=== PATIENT | female | born 1975 | race Two or more races ===

== ENCOUNTER 2020-12-17 11:47 | Outpatient (REF) | payer BC, SELFPAY ==
[2020-12-17 14:48] LABS: Hematocrit 45.8 % (37-47); Hemoglobin 15.4 g/dl (12.0-16.0); Mean Corpuscular HGB Conc 33.6 g/dl (31.0-35.0); Mean Corpuscular Hemoglobin 31.1 pg (27.0-33.0); Mean Corpuscular Volume 92.5 fL (80-98); Mean Platelet Volume 10.1 fL (9.4-12.3); Platelet Count 252 X10*3/uL (160-400); Red Blood Count 4.95 X10*6/uL (4.20-5.50); Red Cell Distribution Width 11.9 % (11.0-16.0); White Blood Count 6.2 X10*3/uL (4.8-10.8)
[2020-12-17 15:07] LABS: Alanine Aminotransferase 22 U/L (0-31); Albumin Level 4.6 g/dL (3.5-5.0); Alkaline Phosphatase 51 U/L (39-117); Anion Gap 12 (12-20); Aspartate Amino Transferase 20 U/L (5-31); Bilirubin Total 0.4 mg/dL (0.0-1.0); Blood Urea Nitrogen 12 mg/dL (9-16); Calcium 9.3 mg/dL (8.4-10.2); Carbon Dioxide 27 mmol/L (22-29); Chloride 103 mmol/L (96-108); Cholesterol 193 mg/dL; Estimated Glomerular Filt Rate > 60; Glucose Fasting 96 mg/dL (60-99); HDL Cholesterol 79 mg/dL; LDL Cholesterol Calculated 104 mg/dl; Potassium 4.4 mmol/L (3.3-5.1); Sodium 138 mmol/L (135-145); Total Protein 7.1 g/dL (6.5-8.0); Triglycerides 54 mg/dL
[2020-12-17 15:29] LABS: Glucose Urine UA NEG (NEG); Leukocyte Esterase Urine NEG (NEG); Nitrite Urine NEG (NEG); PH 5.5 (5.0-8.0); Urine Blood NEG (NEG); Urine Ketones NEG (NEG); Urine Protein NEG (NEG-TRACE)
[2020-12-17 15:30] LABS: TSH reflex Free T4 0.96 uIU/mL (0.32-4.0)
[2020-12-17 15:39] LABS: Appearance Urine CLEAR; Color Urine YELLOW
[2020-12-17 15:42] LABS: UPreg QC Valid YES; Urine Pregnancy NEGATIVE (NEGATIVE)
[2020-12-18 15:52] LABS: Follicle Stimulating Hormone 11.7 mIU/mL
[2020-12-23 07:01] LABS: HPV mRNA E6/E7 Not Detected (Not Detected)
== END 2020-12-17 11:48 | disposition home or self-care (01) ==
LOC: HO.HMGCLDS 11:47
PROVIDERS: PCP Internal Medicine; Visit Provider Internal Medicine
DX: Z00.00 Encounter for general adult medical examination without abnormal findings (principal); R10.2 Pelvic and perineal pain
CPT/HCPCS: 36415; 80053; 80061; 81003; 81025; 83001; 84443; 85027; 87624; 88142

== ENCOUNTER 2021-01-20 08:09 | Outpatient (REF) | payer BC, SELFPAY ==
--- NOTE | ~2021-01-20 | US_ITS ---
EXAMINATION: TRANSVAGINAL AND TRANSABDOMINAL ULTRASOUND OF THE PELVIS CLINICAL INFORMATION: R10.2 - Pelvic and perineal pain COMPARISON: None. TECHNIQUE: Real-time scanning of the pelvis is acquired via transabdominal and transvaginal approach. Transvaginal images were obtained for more detailed evaluation of the ovaries. FINDINGS: UTERUS: Retroverted. Normal in size and appearance, measuring 7.3 x 5 x 5.9 cm (SAG x AP x TRANS). Endometrium is diffusely echogenic, consistent with the secretory phase. Maximum Endometrial Thickness: 1.0 cm. Myometrium: Normal. OVARIES AND ADNEXA: Ovaries are normal in size and appearance. There is a 1.4 cm round structure at the left ovary with a thick wall: No internal blood flow, and diffuse peripheral blood flow on color Doppler, consistent with a corpus luteum. No suspicious adnexal mass. Arterial and venous waveforms are present in both ovaries on spectral Doppler evaluation. Right Ovary: 2.6 x 1.5 x 1.8 cm, volume 3.8 mL. Left Ovary: 3 x 1.5 x 1.7 cm, volume 4 mL. FREE FLUID: None. US/US pelvic and transvaginal IMPRESSION: No acute pelvic abnormalities. A 1.4 cm left corpus luteum is noted.
== END 2021-01-20 08:10 | disposition home or self-care (01) ==
LOC: HO.HMGCX 08:09
PROVIDERS: Visit Provider Internal Medicine
DX: R10.2 Pelvic and perineal pain (principal)
CPT/HCPCS: 76830; 76856

== ENCOUNTER 2022-05-09 11:00 | Outpatient (REF) | payer BC, SELFPAY ==
--- NOTE | ~2022-05-09 | XR_ITS ---
EXAMINATION: XR CHEST CLINICAL INFORMATION: Cough. COMPARISON: None TECHNIQUE: 2 views of the chest were obtained. FINDINGS: No significant abnormality is noted involving the heart, lungs, mediastinum, bony thorax or soft tissues. XR/XR chest 2V IMPRESSION: No acute cardiopulmonary process.
== END 2022-05-09 11:01 | disposition home or self-care (01) ==
LOC: HO.HMGCX 11:00
PROVIDERS: PCP Internal Medicine; Visit Provider Internal Medicine
DX: R05.9 Cough, unspecified (principal)
CPT/HCPCS: 71046

== ENCOUNTER 2022-08-29 13:58 | Outpatient (REF) | payer BC, SELFPAY ==
[2022-08-29 16:34] LABS: Hematocrit 46.9 % (37.0-47.0); Hemoglobin 15.9 g/dl (12.0-16.0); Mean Corpuscular HGB Conc 33.9 g/dl (31.0-35.0); Mean Corpuscular Hemoglobin 30.3 pg (27.0-33.0); Mean Corpuscular Volume 89.5 fL (80.0-98.0); Mean Platelet Volume 10.2 fL (9.4-12.3); Platelet Count 241 X10*3/uL (160-400); Red Blood Count 5.24 X10*6/uL (4.20-5.50); Red Cell Distribution Width 11.8 % (11.0-16.0); White Blood Count 6.5 X10*3/uL (4.8-10.8)
[2022-08-29 16:46] LABS: Alanine Aminotransferase 29 U/L (0-31); Albumin Level 4.7 g/dL (3.5-5.0); Alkaline Phosphatase 54 U/L (39-117); Anion Gap 12 (12-20); Aspartate Amino Transferase 16 U/L (5-31); Bilirubin Direct 0.2 mg/dL (0.0-0.5); Bilirubin Total 0.5 mg/dL (0.0-1.0); Blood Urea Nitrogen 8 mg/dL (9-16); Calcium 9.7 mg/dL (8.4-10.2); Carbon Dioxide 26 mmol/L (22-29); Chloride 106 mmol/L (96-108); Estimated Glomerular Filt Rate > 60; Glucose Random 92 mg/dL (60-115); Potassium 4.2 mmol/L (3.3-5.1); Sodium 140 mmol/L (135-145); Total Protein 7.3 g/dL (6.5-8.0)
[2022-08-29 17:17] LABS: Erythrocyte Sedimentation Rate 2 MM/HR (0-20)
== END 2022-08-29 13:59 | disposition home or self-care (01) ==
LOC: HO.HMGCLDS 13:58
PROVIDERS: PCP Internal Medicine; Visit Provider Internal Medicine
DX: R19.7 Diarrhea, unspecified (principal)
CPT/HCPCS: 36415; 80048; 80076; 85027; 85652

== ENCOUNTER 2022-10-05 10:00 | Outpatient (RCR) | payer BC, SELFPAY ==
[2022-09-12 14:30] VITALS: BP 140/78; PULSE 110; O2SAT 96
== END 2022-11-23 08:06 | disposition home or self-care (01) ==
LOC: HO.PTWFD 10:00
PROVIDERS: PCP Internal Medicine; Visit Provider Internal Medicine
DX: H81.10 Benign paroxysmal vertigo, unspecified ear (principal)
CPT/HCPCS: 95992; 97110; 97161; 97535

== ENCOUNTER 2022-10-05 14:43 | Outpatient (REF) | payer BC, SELFPAY ==
[2022-10-05 16:44] LABS: Appearance Urine Clear; Color Urine Yellow; Glucose Urine UA Negative (Negative); Leukocyte Esterase Urine Negative (Negative); Nitrite Urine Negative (Negative); Specific Gravity - Urine <= 1.005 (1.005-1.025); Urine Blood Negative (Negative); Urine Ketones Negative (Negative); Urine Protein Negative (Neg-Trace)
== END 2022-10-05 14:44 | disposition home or self-care (01) ==
LOC: HO.HMGCLDS 14:43
PROVIDERS: PCP Internal Medicine; Visit Provider Internal Medicine
DX: R35.0 Frequency of micturition (principal)
CPT/HCPCS: 81003

== ENCOUNTER 2022-12-02 15:09 | Outpatient (REF) | payer BC, SELFPAY ==
[2022-12-02 16:48] LABS: Appearance Urine Clear; Color Urine Yellow; Glucose Urine UA Negative (Negative); Leukocyte Esterase Urine Negative (Negative); Nitrite Urine Negative (Negative); PH 6.5 (5.0-9.0); Specific Gravity - Urine 1.015 (1.005-1.025); Urine Blood Negative (Negative); Urine Ketones Negative (Negative); Urine Protein Negative (Neg-Trace)
[2022-12-04 11:20] LABS: BV Int Neg Control Negative (Negative); BV Int Pos Control Positive (Positive)
== END 2022-12-02 15:10 | disposition home or self-care (01) ==
LOC: HO.LAB 15:09
PROVIDERS: Visit Provider Physician Assistant Medical
DX: R30.0 Dysuria (principal); N89.8 Other specified noninflammatory disorders of vagina
CPT/HCPCS: 81003; 87480; 87510; 87660

== ENCOUNTER 2022-12-04 08:44 | Outpatient (REF) | payer BC, SELFPAY ==
[2022-12-04 12:23] LABS: Cholesterol 220 mg/dL; HDL Cholesterol 63 mg/dL; LDL Cholesterol Calculated 140 mg/dl; Triglycerides 89 mg/dL
== END 2022-12-04 08:45 | disposition home or self-care (01) ==
LOC: HO.HMGCLDS 08:44
PROVIDERS: PCP Internal Medicine; Visit Provider Internal Medicine
DX: Z00.00 Encounter for general adult medical examination without abnormal findings (principal)
CPT/HCPCS: 36415; 80061

== ENCOUNTER 2022-12-13 11:14 | Outpatient (REF) | payer BC, SELFPAY ==
[2022-12-16 10:19] LABS: HPV mRNA E6/E7 Not Detected (Not Detected)
== END 2022-12-13 11:15 | disposition home or self-care (01) ==
LOC: HO.LNP 11:14
PROVIDERS: Visit Provider Internal Medicine
DX: Z01.419 Encounter for gynecological examination (general) (routine) without abnormal findings (principal)
CPT/HCPCS: 87624; 88142

== ENCOUNTER 2023-01-09 11:05 | Outpatient (REF) | payer BC, SELFPAY ==
--- NOTE | ~2023-01-09 | US_ITS ---
EXAMINATION: US PELVIS CLINICAL INFORMATION: Ovarian cyst. COMPARISON: Pelvic ultrasound 01/20/2021. TECHNIQUE: Ultrasound of the pelvis is performed using both transabdominal and transvaginal transducers along with Doppler. Transvaginal imaging is performed due to inadequate visualization transabdominally. FINDINGS: Uterus: The uterus is retroverted and retroflexed and measures 8.0 x 4.7 x 6.0 cm. The double wall endometrial thickness is 9 mm. The uterus is smooth in contour and has normal myometrial echogenicity. No visible fibroid. There are nabothian cysts in the cervix. Adnexa: Both ovaries are visualized. There is normal color flow to the adnexa. There is no ovarian torsion. Right ovary measures 2.3 x 1.1 x 1.4 cm. Volume 1.9 mL. Left ovary measures 3.4 x 1.1 x 1.7 cm. Volume 3.1 mL. There is a 1.6 x 0.9 x 1.2 cm thinly septated benign cyst. No follow-up imaging recommended. There is trace free fluid in the pelvis. US/US pelvic and transvaginal IMPRESSION: Unremarkable pelvic ultrasound.
--- NOTE | ~2023-01-09 | US_ITS ---
EXAMINATION: US RETROPERITONEAL LIMITED (RENAL ONLY) CLINICAL INFORMATION: Unspecified abdominal pain. Nephrolithiasis. COMPARISON: None available. TECHNIQUE: Real-time imaging of the kidneys. FINDINGS: RIGHT KIDNEY: 11.2 x 3.9 x 4.6 cm (SAG x AP x TRV). The kidney is normal in size, contour, and echogenicity. Renal cortical thickness is normal. No calculi or focal parenchymal lesions. No hydronephrosis. Extrarenal pelvis. LEFT KIDNEY: 11.0 x 4.9 x 4.9 cm (SAG x AP x TRV). The kidney is normal in size, contour, and echogenicity. Renal cortical thickness is normal. No calculi or focal parenchymal lesions. No hydronephrosis. Extrarenal pelvis. Right ureteral jet is demonstrated; left is not. US/US renal BI IMPRESSION: No nephrolithiasis or hydronephrosis.
== END 2023-01-09 11:06 | disposition home or self-care (01) ==
LOC: HO.US 11:05
PROVIDERS: PCP Internal Medicine; Visit Provider Internal Medicine
DX: R10.9 Unspecified abdominal pain (principal); N83.209 Unspecified ovarian cyst, unspecified side
CPT/HCPCS: 76775; 76830; 76856

== ENCOUNTER 2023-04-24 10:02 | Outpatient (AMB) | payer BC, SELFPAY ==
--- NOTE | 2023-04-24 11:06 | AM.OFFWIN_ITS ---
Intake Vital Signs 04/24/23 11:08 Height 5 ft 3.9 in BP 124/72 Blood Pressure Location Lt brachial Position Sitting Pulse 83 Pulse Source Pulse Oximeter Temp 96.9 F Temp Source Temporal Artery Scan Pulse Oximetry (%) 98 Oxygen Delivery Method Room Air Intake Visit Reasons: EP, Left eye stye Intake Note: Pt is here c/o having a stye in her left eye. Patient Tobacco Use Status: Former Tobacco user (25 years ago) Allergies No Known Allergies Allergy (Verified 04/24/23 11:37) Medication List - Last Reconciled 04/24/23 by Yvan Duvall MD meclizine 25 mg PO TID PRN mupirocin 2% 1 appl topical BID sertraline (Zoloft) 50 mg PO DAILY HPI EP, Left eye stye HPI Details 48-year-old female presents to the office for a sick visit. Patient has a swelling in the left eye lid with purulent discharge. [facility] Medical History Abnormal mammogram Annual physical exam Pelvic pain Family History (Updated 12/13/22 @ 10:16 by Nella Bravo ON LICENSE OF [facility]) Father Cancer Mother No problems noted. Social History (Updated 11/14/22 @ 10:35 by Elysia Chapa MD) Household Members Other:: , Housing: House Alcohol intake: unknown Patient Tobacco Use Status: Former Tobacco user (25 years ago) e-Cigarette/Vaping Use: Never Used Current occupational status: employed Cognitive needs: No Hearing needs: No Vision needs: No Physical Exam Vital Signs: Last Vital Signs Temp 96.9 F 04/24/23 11:08 Pulse 83 04/24/23 11:08 BP 124/72 04/24/23 11:08 Pulse Ox 98 04/24/23 11:08 Oxygen Delivery Method Room Air 04/24/23 11:08 Eyes Other: Left eye: Lower eyelid: Erythematous swelling on the lower eyelid and the adjoining tarsal conjunctiva is congested. Corneas clear. Assessment & Plan Assessment & Plan (1) Hordeolum externum left eye, unspecified eyelid: Code(s): H00.016 - Hordeolum externum left eye, unspecified eyelid Plan: Erythromycin ophthalmic ointment called in. If symptoms do not improve to follow-up here. Coding Level of Care Code Est Pt Level 3 (32759) Diagnoses Hordeolum externum left eye, unspecified eyelid H00.016
[2023-04-24 11:08] VITALS: BP 124/72; PULSE 83; TEMP 36.1; O2SAT 98
== END 2023-04-24 11:44 | disposition home or self-care (01) ==
PROVIDERS: PCP Internal Medicine; Visit Provider Internal Medicine
DX: H00.016 Hordeolum externum left eye, unspecified eyelid (principal)
CPT/HCPCS: 99213

== ENCOUNTER 2023-06-19 09:32 | Outpatient (AMB) | payer BC, SELFPAY ==
[2023-06-19 09:35] VITALS: BP 110/66; PULSE 88; O2SAT 99; BMI 26.0
--- NOTE | 2023-06-19 09:35 | MHC.PC.OV ---
Vital Signs 06/19/23 09:35 Height 5 ft 3.9 in Weight 151 lb BMI 26.0 BP 110/66 Blood Pressure Location Rt brachial Position Sitting Pulse 88 Pulse Source Pulse Oximeter Pulse Oximetry (%) 99 Oxygen Delivery Method Room Air Intake Visit Reasons: 6 month follow up Anxiety Intake Note: Pt is here today for 6 months follow up visit on anxiety. Allergies No Known Allergies Allergy (Verified 06/19/23 09:39) Medication List - Last Reconciled 06/19/23 by Elysia Chapa MD meclizine 25 mg PO TID PRN mupirocin 2% 1 appl topical BID sertraline (Zoloft) 50 mg PO DAILY Tobacco use date assessed: 06/19/23 Dental Screening Dental Screen Date: 06/19/23 Did you have a dental visit in the last 12 months?: Yes Did you have a dental problem in the last 6 months where you did not have access to dental care?: No Was dental information given to patient?: Patient has dentist HPI 6 month follow up Anxiety HPI Details Patient presents for the follow-up of anxiety. She took Zoloft for 2 months only and felt better. Patient reports recurrent mood swings and anxiety associated with menopause. She has been exercising regularly. [facility] Medical History Abnormal mammogram Annual physical exam Pelvic pain Family History (Updated 12/13/22 @ 10:16 by Nella Bravo [facility]) Father Cancer Mother No problems noted. Social History (Updated 11/14/22 @ 10:35 by Elysia Chapa MD) Household Members Other:: , Housing: House Alcohol intake: unknown Patient Tobacco Use Status: Former Tobacco user (25 years ago) e-Cigarette/Vaping Use: Never Used Current occupational status: employed Cognitive needs: No Hearing needs: No Vision needs: No Questionnaire Thrive Questionnaire Date Thrive assessed: 11/14/22 LEONCIO-7 AMB Questionnaire LEONCIO-7 Date LEONCIO - 7 assessed: 11/14/22 Source: Developed by Drs. Eduard Torres, Snehal Michael, Hayder Nicholson and colleagues, with an educational shade from [employer]. Review of Systems Const All systems reviewed & are unremarkable except as noted in HPI and below Reports no additional complaints Eyes Reports no additional complaints ENT Reports no additional complaints Card Reports no additional complaints Resp Reports no additional complaints GI Reports no additional complaints Reports no additional complaints Physical exam (Primary Care) Vital Signs: Last Vital Signs Pulse 88 06/19/23 09:35 BP 110/66 06/19/23 09:35 Pulse Ox 99 06/19/23 09:35 Oxygen Delivery Method Room Air 06/19/23 09:35 BMI result Body Mass Index 26.0 Tobacco/Smoking Status: Tobacco use Status Tobacco use date assessed 06/19/23 06/19/23 09:44 Patient Tobacco Use Status Former Tobacco user (06/19/23 09:36 years ago) e-Cigarette/Vaping Use Never Used 06/19/23 09:36 Thrive Assessment: Date of Thrive Assessment Date Thrive assessed 11/14/22 06/19/23 09:36 Const General: no acute distress HENMT Ears: hearing grossly normal bilaterally Resp Effort & Inspection: normal respiratory effort Auscultation: clear to auscultation bilaterally Cardio Rhythm: regular rhythm Heart sounds: S1 normal heart sound present and S2 normal heart sound present Assessment and Plan Assessment & Plan (1) Annual physical exam: Code(s): Z00.00 - Encounter for general adult medical examination without abnormal findings Plan: Return for physical in November with fasting blood work before (2) Anxiety: Code(s): F41.9 - Anxiety disorder, unspecified Plan: Restart sertraline and stress management discussed Orders: Orders Comprehensive [place]. Panel Fast 5 Months F41.9 - Anxiety disorder, unspecified, Z00.00 - Encounter for general adult medical examination without abnormal findings Complete Blood Count Auto Diff 5 Months F41.9 - Anxiety disorder, unspecified, Z00.00 - Encounter for general adult medical examination without abnormal findings Lipid Panel 5 Months F41.9 - Anxiety disorder, unspecified, Z00.00 - Encounter for general adult medical examination without abnormal findings TSH reflex Free T4 5 Months F41.9 - Anxiety disorder, unspecified, Z00.00 - Encounter for general adult medical examination without abnormal findings Medications: Refilled sertraline (Zoloft) 50 mg PO DAILY 90 tabs 2RF Coding Level of Care Code Est Pt Level 3 (41405) Diagnoses Annual physical exam Z00.00 Anxiety F41.9
== END 2023-06-19 10:31 | disposition home or self-care (01) ==
PROVIDERS: PCP Internal Medicine; Visit Provider Internal Medicine
DX: F41.9 Anxiety disorder, unspecified (principal)
CPT/HCPCS: 99213

== ENCOUNTER 2023-09-21 10:01 | Outpatient (AMB) | payer BC, SELFPAY ==
--- NOTE | 2023-09-21 10:10 | MHC.PC.OV ---
Vital Signs 09/21/23 10:12 Height 5 ft 3.9 in Weight 153 lb BMI 26.3 BP 122/70 Blood Pressure Location Rt brachial Position Sitting Pulse 58 Pulse Source Pulse Oximeter Pulse Oximetry (%) 98 Oxygen Delivery Method Room Air Intake Visit Reasons: ER follow up Allergies No Known Allergies Allergy (Verified 09/21/23 10:14) Medication List - Last Reconciled 09/21/23 by Elysia Chapa MD metoprolol tartrate 25 mg PO BID sertraline (Zoloft) 50 mg PO DAILY Tobacco use date assessed: 09/21/23 Dental Screening Dental Screen Date: 09/21/23 Did you have a dental visit in the last 12 months?: Yes Did you have a dental problem in the last 6 months where you did not have access to dental care?: No Was dental information given to patient?: Patient has dentist HPI ER follow up HPI Details Patient presents for the follow-up of admission to [facility] for the episode of SVT. Patient converted with Adenosine and was started on metoprolol. she denies any recurrent palpitations shortness of breath but has been feeling very anxious and concerned. She was advised to schedule an appointment with [facility] in [place]. [facility] Medical History Pelvic pain Abnormal mammogram Annual physical exam Family History Father Cancer Mother No problems noted. Social History Household Members Other:: , Housing: House Alcohol intake: unknown Patient Tobacco Use Status: Former Tobacco user (25 years ago) e-Cigarette/Vaping Use: Never Used Current occupational status: employed Cognitive needs: No Hearing needs: No Vision needs: No Questionnaire Thrive Questionnaire Date Thrive assessed: 11/14/22 AUDIT C Alcohol Use Questionnaire (AUDIT-C) 1. How often do you have a drink containing alcohol?: Never 3. How often do you have six or more drinks on one occasion?: Never Total Score: 0 Score Reviewed/Action Taken: Yes LEONCIO-7 AMB Questionnaire LEONCIO-7 Date LEONCIO - 7 assessed: 09/21/23 Feeling nervous, anxious, or on edge: 3 = Nearly every day Not being able to stop or control worryin = More than half the days Worrying too much about different things: 3 = Nearly every day Trouble relaxin = Several days Being so restless that it is hard to sit still: 0 = Not at all Becoming easily annoyed or irritable: 0 = Not at all Feeling afraid as if something awful might happen: 0 = Not at all Total LEONCIO-7 score (0-4 normal; 5-9 mild; 10-14 moderate; 15-21 severe): 9 Source: Developed by Drs. Eduard Torres, Snehal Michael, Hayder Nicholson and colleagues, with an educational shade from [employer]. LEONCIO-7 Assessment Billing LEONCIO-7 Assessment Tool: LEONCIO-7 Assessment 94604 Review of Systems Const All systems reviewed & are unremarkable except as noted in HPI and below Reports no additional complaints Eyes Reports no additional complaints ENT Reports no additional complaints Card Reports no additional complaints Resp Reports no additional complaints GI Reports no additional complaints Reports no additional complaints Physical exam (Primary Care) Vital Signs: Last Vital Signs Pulse 58 09/21/23 10:12 BP 122/70 09/21/23 10:12 Pulse Ox 98 09/21/23 10:12 Oxygen Delivery Method Room Air 09/21/23 10:12 BMI result Body Mass Index 26.3 Tobacco/Smoking Status: Tobacco use Status Tobacco use date assessed 09/21/23 09/21/23 10:15 Patient Tobacco Use Status Former Tobacco user (25 09/21/23 10:11 years ago) e-Cigarette/Vaping Use Never Used 09/21/23 10:11 Thrive Assessment: Date of Thrive Assessment Date Thrive assessed 11/14/22 09/21/23 10:11 Const General: no acute distress HENMT Head: Yes normal to inspection Face and sinus: Yes normal facial exam Eyes General: appearance normal, both eyes and all related structures Neck Neck: Yes no lymphadenopathy and Yes supple Resp Effort & Inspection: normal respiratory effort Auscultation: clear to auscultation bilaterally Cardio Rhythm: regular rhythm Heart sounds: S1 normal heart sound present and S2 normal heart sound present GI Inspection: Yes normal to inspection Palpation (GI): Soft to palpation Percussion: Yes normal to percussion Auscultation: normal bowel sounds Assessment and Plan Assessment & Plan (1) SVT (supraventricular tachycardia): Code(s): I47.10 - Supraventricular tachycardia, unspecified Plan: cont Metoprolol, refer to Cardiology, pt will schedule appointment (2) Anxiety: Code(s): F41.9 - Anxiety disorder, unspecified Plan: Restart sertraline, stress management discussed with the patient, for perimenopausal symptoms she was advised to take Estroven Orders: Referrals Cardiology Referral I47.10 - Supraventricular tachycardia, unspecified Medications: New metoprolol tartrate 25 mg PO BID 180 tabs 1RF Refilled sertraline (Zoloft) 50 mg PO DAILY 90 tabs 2RF Coding Level of Care Code Est Pt Level 3 (62475) Diagnoses SVT (supraventricular tachycardia) I47.10 Anxiety F41.9 Additional Codes LEONCIO-7 Assessment Billing - LEONCIO-7 Assessment Tool: LEONCIO-7 Assessment 95063 ([id number])
[2023-09-21 10:12] VITALS: BP 122/70; PULSE 58; O2SAT 98; BMI 26.3
== END 2023-09-21 11:10 | disposition home or self-care (01) ==
PROVIDERS: PCP Internal Medicine; Visit Provider Internal Medicine
DX: I47.10 Supraventricular tachycardia, unspecified (principal); F41.9 Anxiety disorder, unspecified
CPT/HCPCS: 96127; 99213

== ENCOUNTER 2023-10-02 10:43 | Outpatient (AMB) | payer BC, SELFPAY ==
[2023-10-02 10:46] VITALS: BP 108/66; PULSE 64; O2SAT 98; BMI 26.2
--- NOTE | 2023-10-02 10:46 | MHC.PC.OV ---
Vital Signs 10/02/23 10:46 Height 5 ft 3.9 in Weight 152 lb BMI 26.2 BP 108/66 Blood Pressure Location Rt brachial Position Sitting Pulse 64 Pulse Source Pulse Oximeter Pulse Oximetry (%) 98 Oxygen Delivery Method Room Air Intake Visit Reasons: Follow up Intake Note: Pt is here today for a follow up visit. Pt states that [facility] told her that she should have testing done by her PCP before they will see her. Allergies No Known Allergies Allergy (Verified 10/02/23 10:46) Medication List - Last Reconciled 10/02/23 by Elysia Chapa MD metoprolol tartrate 25 mg PO BID sertraline (Zoloft) 50 mg PO DAILY Tobacco use date assessed: 10/02/23 Dental Screening Dental Screen Date: 10/02/23 Did you have a dental visit in the last 12 months?: Yes Did you have a dental problem in the last 6 months where you did not have access to dental care?: No Was dental information given to patient?: Patient has dentist HPI Follow up HPI Details Patient presents for the follow-up of anxiety and paroxysmal SVT. She is feeling better and denies recurrent palpitations. [facility] Medical History Pelvic pain Abnormal mammogram Annual physical exam Family History Father Cancer Mother No problems noted. Social History Household Members Other:: , Housing: House Alcohol intake: unknown Patient Tobacco Use Status: Former Tobacco user (25 years ago) e-Cigarette/Vaping Use: Never Used Current occupational status: employed Cognitive needs: No Hearing needs: No Vision needs: No Questionnaire Thrive Questionnaire Date Thrive assessed: 11/14/22 AUDIT C Alcohol Use Questionnaire (AUDIT-C) 1. How often do you have a drink containing alcohol?: Never 3. How often do you have six or more drinks on one occasion?: Never Total Score: 0 LEONCIO-7 AMB Questionnaire LEONCIO-7 Date LEONCIO - 7 assessed: 09/21/23 Source: Developed by Drs. Eduard Torres, Snehal Michael, Hayder Nicholson and colleagues, with an educational shade from [employer]. Review of Systems Const All systems reviewed & are unremarkable except as noted in HPI and below Reports no additional complaints Eyes Reports no additional complaints ENT Reports no additional complaints Card Reports no additional complaints Resp Reports no additional complaints GI Reports no additional complaints Physical exam (Primary Care) Vital Signs: Last Vital Signs Pulse 64 10/02/23 10:46 BP 108/66 10/02/23 10:46 Pulse Ox 98 10/02/23 10:46 Oxygen Delivery Method Room Air 10/02/23 10:46 BMI result Body Mass Index 26.2 Tobacco/Smoking Status: Tobacco use Status Tobacco use date assessed 10/02/23 10/02/23 10:47 Patient Tobacco Use Status Former Tobacco user (25 10/02/23 10:47 years ago) e-Cigarette/Vaping Use Never Used 10/02/23 10:47 Thrive Assessment: Date of Thrive Assessment Date Thrive assessed 11/14/22 10/02/23 10:47 Const General: no acute distress HENMT Throat: Yes posterior oropharynx normal Eyes General: appearance normal, both eyes and all related structures Resp Effort & Inspection: normal respiratory effort Auscultation: clear to auscultation bilaterally Cardio Rhythm: regular rhythm Heart sounds: S1 normal heart sound present and S2 normal heart sound present Assessment and Plan Assessment & Plan (1) SVT (supraventricular tachycardia): Code(s): I47.10 - Supraventricular tachycardia, unspecified Plan: Continue metoprolol , schedule 30 day Holter and echocardiogram. Patient will be referred to political advisor (2) Anxiety: Code(s): F41.9 - Anxiety disorder, unspecified Plan: Continue sertraline Orders: Orders CA echo transthoracic complete Today F41.9 - Anxiety disorder, unspecified, I47.10 - Supraventricular tachycardia, unspecified ECG 30 day event monitor Today F41.9 - Anxiety disorder, unspecified, I47.10 - Supraventricular tachycardia, unspecified Referrals Cardiology Referral I47.10 - Supraventricular tachycardia, unspecified Coding Level of Care Code Est Pt Level 3 (76095) Diagnoses SVT (supraventricular tachycardia) I47.10 Anxiety F41.9
== END 2023-10-02 11:31 | disposition home or self-care (01) ==
PROVIDERS: PCP Internal Medicine; Visit Provider Internal Medicine
DX: I47.10 Supraventricular tachycardia, unspecified (principal); F41.9 Anxiety disorder, unspecified
CPT/HCPCS: 99213

== ENCOUNTER → 2023-10-22 08:34 | Outpatient (REF) | payer BC, SELFPAY ==
--- NOTE | 2023-10-22 08:50 | CA_ITS ---
Transthoracic Echocardiogram Patient (Last, First, Middle): Selena Higgins, Gender: Female Date of : 1975 Age: 48 Procedure Date: 10/22/2023 Procedure Type: Transthoracic Echocardiogram Location: OP Height: 162.56 cm Weight: 68.04 kg BSA: 1.73 m2 Heart Rate: bpm BP: 140 / 82 mmHg [employer] Manager: RAFAT Referring MD: Elysia Chapa MD Symptoms: I47.10 - Supraventricular tachycardia, unspecified Study Quality: Adequate ECG Rhythm: Sinus Conclusions: - The left ventricular systolic function is normal. The calculated ejection fraction is 65% by biplane method. - No obvious valvular pathology seen on this study. Findings Left Ventricle Normal left ventricular cavity size. There is normal left ventricular wall thickness. The left ventricular systolic function is normal. The calculated ejection fraction is 65% by biplane method. There is no evidence of regional wall motion abnormalities. Diastolic function is normal for age. LV peak GLS -21.9%. Right Ventricle Normal right ventricular cavity size and systolic function. Atria Both atria are normal in size. Aortic Valve There is a normal trileaflet aortic valve. There is no aortic valve stenosis. There is no aortic valve regurgitation. Mitral Valve The mitral valve appears normal. There is trace mitral valve regurgitation. There is no mitral valve stenosis. Pulmonic Valve The pulmonic valve is likely normal. Tricuspid Valve Normal tricuspid valve structure. There is trace tricuspid valve regurgitation. There is no evidence of pulmonary hypertension. Great Vessels The asc aorta is normal in size. Venous The inferior vena cava is normal in size and collapses greater than 50% with inspiration. Pericardium/Pleural There is no evidence of pericardial effusion. Prior Study Comparison No prior study available for comparison. Recommendations, Care & Conclusions No obvious valvular pathology seen on this study. Measurements 2D Linear Measurements IVSd: 0.55 0.6-0.9/0.6-1.0 cm LVIDd: 4.97 3.9-5.3/4.2-5.9 cm LVIDd Index: 2.87 2.4-3.2/2.2-3.1 cm/m2 LVIDs: 3.08 2.0-3.6 cm LVPWd: 0.71 0.7-1.1 cm LA Diam: 3.10 2.7-3.8/3.0-4.0 cm LAIDs Index: 1.79 1.5-2.3 cm/m2 LV Mass: 122.84 67-162/88-224 g LV Mass Index: 71.00 43-95/49-115 g/m2 LVOT Diam: 1.90 3.0+(-)1.3 cm 2D Systolic Function EF 4C: 60.00 >55% EF 2C: 68.20 >55% EF BiP: 64.50 >55% Mitral Valve MV Pk E: 1.07 MV PK A: 0.70 MV Decel Time: 163.00 E/A: 1.50 E'Lateral: 12.00 E'Medial: 7.94 E/E' Med: 13.50 E/E' Lat: 8.90 PHT: 48.00 MVA PHT: 4.58 Decel [place]: 6.59 Aortic Valve AoV Pk Donnie: 1.10 AoV Mn Donnie: 0.79 AoV VTI: 0.28 AoV Pk Grad: 5.00 Aov Mn Grad: 3.00 BENITA Cont.VTI: 2.22 LVOT LVOT Pk Donnie: 1.00 LVOT Mn Donnie: 0.59 LVOT VTI: 0.22 LVOT Pk Grad: 4.00 LVOT Mn Grad: 2.00 LVOT Diam: 1.90 LVOT Area: 2.84 Diastolic Function MV Pk E: 1.07 MV Pk A: 0.70 E/A: 1.50 E'Medial: 7.94 E/E' Med: 13.50 E' Laterial: 12.00 E/E' Lat: 8.90 Right Ventricle TAPSE (mm): 23.60 TVS' Donnie: 14.80 Tricuspid Valve RA Press: 3.00 Great Vessels Aorta Sinus of Valsalva: 2.92 2.0-3.[address] [place]: 2.36 1.7-3.4 cm Ao Asc: 2.80 2.1-3.4 cm Updated in Other Vendor System with Status of Final Malik Burgos MD electronically signed on 10/22/2023 12:41:50 PM with status of Final
--- NOTE | 2023-10-22 08:50 | HM_ITS ---
Cardiac event monitor Indication: Supraventricular tachycardia Technique: Patient was hooked up to cardiac event monitor for 30 days on 10/22/2023. Compliance rate was about 84%. Findings: Baseline rhythm was predominantly sinus rhythm with 32% of time heart rate below 60 beats per minute in sinus bradycardia. There were no significant pauses noted. There were no significant arrhythmias noted Patient reported to events with no corresponding symptoms reported, correlating with sinus rhythm Conclusion: 1. Baseline was normal sinus rhythm with no pauses 2. No significant arrhythmias noted 3. Patient reported to events correlated with sinus rhythm MTDD
== END ==
LOC: HO.CARD 08:34
PROVIDERS: PCP Internal Medicine; Visit Provider Internal Medicine
DX: I47.10 Supraventricular tachycardia, unspecified (principal); F41.9 Anxiety disorder, unspecified
CPT/HCPCS: 93270; 93306; 93356

== ENCOUNTER → 2023-10-22 08:50 | Outpatient (BNV) | payer BC, SELFPAY | PROVIDERS: PCP Internal Medicine; Visit Provider Internal Medicine | DX: R00.1 Bradycardia, unspecified (principal) | CPT/HCPCS: 93272; 93306 ==

== ENCOUNTER 2023-11-12 09:01 | Outpatient (REF) | payer BC, SELFPAY ==
[2023-11-12 11:48] LABS: MANUAL DIFF FLAG NO
[2023-11-12 12:32] LABS: Basophils Percent Auto 0.2 % (0-2); Eosinophils Absolute Auto 0.1 X10*3/uL (0.0-0.4); Eosinophils Percent Auto 1.1 % (0-4); Hematocrit 44.6 % (37.0-47.0); Hemoglobin 15.2 g/dl (12.0-16.0); Imm Gran Abs Auto 0.01 X10*3/uL (0.00-0.03); Imm Gran Pct Auto 0.2 % (0.0-0.4); Lymphocytes Absolute Auto 2.4 X10*3/uL (1.2-4.9); Lymphocytes Percent Auto 37.1 % (20-40); Mean Corpuscular HGB Conc 34.1 g/dl (31.0-35.0); Monocytes Absolute Auto 0.5 X10*3/uL (0.1-1.2); Monocytes Percent Auto 7.4 % (2-11); Neutrophils Absolute Auto 3.5 x10*3/uL (2.0-8.3); Platelet Count 224 X10*3/uL (160-400); White Blood Count 6.4 X10*3/uL (4.8-10.8)
[2023-11-12 12:43] LABS: Alanine Aminotransferase 31 U/L (0-31); Albumin Level 4.3 g/dL (3.5-5.0); Alkaline Phosphatase 44 U/L (39-117); Anion Gap 13 (12-20); Aspartate Amino Transferase 23 U/L (5-31); Bilirubin Total 0.6 mg/dL (0.0-1.0); Blood Urea Nitrogen 22 mg/dL (9-16); Calcium 9.3 mg/dL (8.4-10.2); Carbon Dioxide 26 mmol/L (22-29); Chloride 104 mmol/L (96-108); Cholesterol 200 mg/dL (<200); Estimated Glomerular Filt Rate > 60; Glucose Fasting 94 mg/dL (60-99); HDL Cholesterol 68 mg/dL (>40); LDL Cholesterol Calculated 114 mg/dL (<100); Potassium 3.8 mmol/L (3.3-5.1); Sodium 139 mmol/L (135-145); Triglycerides 94 mg/dL (<150)
== END 2023-11-12 09:02 | disposition home or self-care (01) ==
LOC: HO.HMGCLDS 09:01
PROVIDERS: PCP Internal Medicine; Visit Provider Internal Medicine
DX: Z00.00 Encounter for general adult medical examination without abnormal findings (principal); F41.9 Anxiety disorder, unspecified
CPT/HCPCS: 36415; 80053; 80061; 84443; 85025

== ENCOUNTER 2023-11-16 12:46 | Outpatient (AMB) | payer BC, SELFPAY ==
--- NOTE | 2023-11-16 13:05 | MHC.PC.OV ---
Vital Signs 11/16/23 13:06 Height 5 ft 3.9 in Weight 154 lb BMI 26.5 BP 115/76 Blood Pressure Location Lt brachial Position Sitting Pulse 67 Pulse Source Pulse Oximeter Pulse Oximetry (%) 98 Oxygen Delivery Method Room Air Intake Visit Reasons: Annual PE Intake Note: Pt is here today for PE. Allergies No Known Allergies Allergy (Verified 11/16/23 13:17) Medication List - Last Reconciled 11/16/23 by Elysia Chapa MD azelaic acid 15% 1 appl topical BID metoprolol tartrate 25 mg PO BID sertraline (Zoloft) 50 mg PO DAILY Tobacco use date assessed: 10/02/23 HPI Annual PE HPI Details Pt presents for PE. Patient reports palpitations and anxiety improved since taking metoprolol and Zoloft. Patient had normal echocardiogram and is wearing a Holter monitor. She denies any recurrent episodes of tachycardia. [facility] Medical History (Updated 11/16/23 @ 15:22 by Elysia Chapa MD) Pelvic pain Abnormal mammogram Annual physical exam Family History Father Cancer Mother No problems noted. Social History Household Members Other:: , Housing: House Alcohol intake: unknown Patient Tobacco Use Status: Former Tobacco user (25 years ago) e-Cigarette/Vaping Use: Never Used Current occupational status: employed Cognitive needs: No Hearing needs: No Vision needs: No Questionnaire PHQ-9 Over the last 2 weeks, how often have you been bothered by any of the following problems? 1. Little interest or pleasure in doing things: several days 2. Feeling down, depressed, or hopeless: not at all 3. Trouble falling or staying asleep, or sleeping too much: not at all 4. Feeling tired or having little energy: several days 5. Poor appetite or overeating: not at all 6. Feeling bad about yourself - or that you are a failure or have let yourself or your family down: not at all 7. Trouble concentrating on things, such as reading the newspaper or watching television: not at all 8. Moving or speaking so slowly that other people could have noticed. Or the opposite - being so fidgety or restless that you have been moving around a lot more than usual: not at all 9. Thoughts that you would be better off or of hurting yourself in some way: not at all Total score: 2 Depression Screening Interpretation: Negative Depression Screening Done: Yes Source: Developed by Drs. Eduard Torres, Snehal Michael, Hayder Nicholson and colleagues, with an educational shade from [employer]. Thrive Questionnaire Date Thrive assessed: 11/16/23 I am a: Patient What is your living situation today?: I have a steady place to live Within the past 12 months, did the food you bought not last and you didn't have the money to get more?: Never true Within the past 12 months, did you worry whether your food would run out before you got money to buy more?: Never true Do you have trouble paying for medicines?: No Do you have trouble getting transportation to medical appointments?: No Do you have trouble paying your heating and electricity bill?: No Do you have trouble taking care of your child, family member or friend?: No Do you have trouble with day-to-day activities such as bathing, preparing meals, shopping, managing finances, etc.?: No Are you currently unemployed and looking for a job?: No Are you interested in more education?: No Please select the resources that you would like help with: None Currently or been in a relationship where the following occur: no concerns reported THRIVE Score: 0 LEONCIO-7 AMB Questionnaire LEONCIO-7 Date LEONCIO - 7 assessed: 11/16/23 Feeling nervous, anxious, or on edge: 1 = Several days Not being able to stop or control worryin = Several days Worrying too much about different things: 2 = More than half the days Trouble relaxin = Several days Being so restless that it is hard to sit still: 0 = Not at all Becoming easily annoyed or irritable: 1 = Several days Feeling afraid as if something awful might happen: 1 = Several days Total LEONCIO-7 score (0-4 normal; 5-9 mild; 10-14 moderate; 15-21 severe): 7 Source: Developed by Drs. Eduard Torres, Snehal Michael, Hayder Nicholson and colleagues, with an educational shade from [employer]. Review of Systems Const All systems reviewed & are unremarkable except as noted in HPI and below Reports no additional complaints Eyes Reports no additional complaints ENT Reports no additional complaints Card Reports no additional complaints Resp Reports no additional complaints GI Reports no additional complaints Reports no additional complaints Musc Reports no additional complaints Physical exam (Primary Care) Vital Signs: Last Vital Signs Pulse 67 11/16/23 13:06 BP 134/80 11/16/23 13:06 Pulse Ox 98 11/16/23 13:06 Oxygen Delivery Method Room Air 11/16/23 13:06 BMI result Body Mass Index 26.5 Tobacco/Smoking Status: Tobacco use Status Tobacco use date assessed 10/02/23 11/16/23 13:06 Patient Tobacco Use Status Former Tobacco user (25 11/16/23 13:06 years ago) e-Cigarette/Vaping Use Never Used 11/16/23 13:06 PHQ-9: PHQ-9 Score PHQ-9: Total score 2 11/16/23 13:20 Depression Screening Interpretation: Negative Thrive Assessment: Date of Thrive Assessment Date Thrive assessed 11/16/23 11/16/23 13:20 Currently or been in a relationship where the following occur: no concerns reported Const General: no acute distress HENMT Head: Yes normal to inspection Ears: hearing grossly normal bilaterally Throat: Yes posterior oropharynx normal Eyes General: appearance normal, both eyes and all related structures Neck Neck: Yes no lymphadenopathy and Yes supple Resp Effort & Inspection: normal respiratory effort Auscultation: clear to auscultation bilaterally Cardio Rhythm: regular rhythm Heart sounds: S1 normal heart sound present and S2 normal heart sound present GI Inspection: Yes normal to inspection Palpation (GI): Soft to palpation Percussion: Yes normal to percussion Auscultation: normal bowel sounds Assessment and Plan Assessment & Plan (1) SVT (supraventricular tachycardia): Comment: nl Echo, 30 day Holter, referred to cardiology 10/24 Code(s): I47.10 - Supraventricular tachycardia, unspecified Plan: Follow-up with cardiology continue metoprolol (2) Anxiety: Code(s): F41.9 - Anxiety disorder, unspecified Plan: Continue Zoloft (3) Annual physical exam: Code(s): Z00.00 - Encounter for general adult medical examination without abnormal findings Plan: Well-balanced diet regular physical activity stress management discussed with the patient. Follow-up in 3 months (4) Colon cancer screening: Comment: Negative Cologuard December 21, refused colonoscopy Code(s): Z12.11 - Encounter for screening for malignant neoplasm of colon Medications: New azelaic acid 15% 1 appl topical BID 50 grams 2RF Coding Level of Care Code Est Pt Prev Care 40-64y(47174) Diagnoses SVT (supraventricular tachycardia) I47.10 Anxiety F41.9 Annual physical exam Z00.00 Colon cancer screening Z12.11
[2023-11-16 13:06] VITALS: BP 115/76; PULSE 67; O2SAT 98; BMI 26.5
== END 2023-11-16 14:03 | disposition home or self-care (01) ==
PROVIDERS: PCP Internal Medicine; Visit Provider Internal Medicine
DX: I47.10 Supraventricular tachycardia, unspecified (principal); F41.9 Anxiety disorder, unspecified; Z00.00 Encounter for general adult medical examination without abnormal findings; Z12.11 Encounter for screening for malignant neoplasm of colon
CPT/HCPCS: 99396

== ENCOUNTER 2023-12-04 12:36 | Outpatient (AMB) | payer BC, SELFPAY ==
--- NOTE | 2023-12-04 12:56 | A.OFFVIS_ITS ---
Intake Vital Signs 12/04/23 12:57 Height 5 ft 3.9 in Weight 130 lb 1.164 oz BMI 22.4 BP 120/80 Blood Pressure Location Lt brachial Position Sitting Pulse 90 Intake Visit Reasons: NPV/SVT/Cichon Intake Note: New patient SVT with ekg feeling ok Framing And Hanging Required: Yes Framing And Hanging Name: Cesilia castro Allergies No Known Allergies Allergy (Verified 11/16/23 13:17) Medication List - Last Reconciled 12/04/23 by Joby John MD azelaic acid 15% 1 appl topical BID metoprolol tartrate 25 mg PO BID sertraline (Zoloft) 50 mg PO DAILY HPI HPI Comments History of Present Illness Details Thank you for referring Selena in cardiology consultation today for management of supraventricular tachycardia. History was obtained with help of a certified runner out over the telephone. She has a pleasant 48-year-old woman who says she has had palpitation for many years greater than 20 years. However more recently in August she ended up going to [facility] ED as she had a very prolonged episode of palpitation that did not subside with her usual maneuvers. Patient says the symptoms started around 21:00 on the day of her going to the emergency room and she tried the usual maneuvers but symptoms did not subside and she waited and she ended up going to emergency room about 03 :00 o'clock in the morning with episodes of palpitation as heart rate remained at 190 beats per minute. Usually when she gets the palpitations and the heart is racing she also gets associated pressure in the chest and interscapular area and feels like she has to burp. She had similar episode at that time. She ended up going to emergency room and she was noted to have SVT what appears to be of AVNRT type. She was given adenosine 6 mg with conversion to sinus tachycardia. She would another episode of SVT in the emergency room where she was given 6 mg of adenosine again with conversion. Then she was started on metoprolol 25 mg b.i.d. and then sent home. She had abnormal troponins which is suspected to be tachycardia mediated. No other workup has been done except for echocardiogram in October which has been normal with normal LV ejection fraction. Cardiac event monitor also did not show any runs of SVT. Since being on metoprolol she says she has had 2 brief episodes of SVT which have subsided and heart rate have been on the lower side and 110 range. She says she tends to get anxious easily. She also drinks 1 cup of caffeine every day but this is not changed in many years. She denies any exertional chest pain or shortness of breath. Denies any heart failure symptoms. [facility] Medical History Pelvic pain Abnormal mammogram Annual physical exam Family History Father Cancer Mother No problems noted. Social History Household Members Other:: , Housing: House Alcohol intake: unknown Patient Tobacco Use Status: Former Tobacco user (25 years ago) e-Cigarette/Vaping Use: Never Used Current occupational status: employed Cognitive needs: No Hearing needs: No Vision needs: No Review of Systems Const Denies chills, Denies daytime sleepiness, Denies fatigue, Denies fever(s), Denies frequent falls, Denies poor appetite, Denies snoring, Denies stops breathing during sleep, Denies weakness, Denies weight gain and Denies weight loss Eyes Denies loss of vision ENT Denies dizziness and Denies hearing loss Card Denies chest pain, Denies claudication, Denies leg edema, Denies lightheadedness, Denies palpitations, Denies dyspnea, Denies dyspnea on exertion and Denies orthopnea Resp Denies cough, Denies excessive phlegm production, Denies dyspnea, Denies dyspnea on exertion, Denies snoring and Denies wheezing GI Denies abdominal pain, Denies hematochezia, Denies change in bowel habits, Denies nausea and Denies vomiting Denies urinary frequency and Denies dysuria Musc Denies arthralgias, Denies muscle weakness, Denies numbness and Denies other (frequent falls) Skin/Breast Denies nail changes and Denies rash Neuro Denies Abnormal speech present, Denies dizziness, Denies frequent falls, Denies loss of vision, Denies memory loss, Denies numbness and Denies weakness Psych Denies depression and Denies memory loss Endo Denies fatigue and Denies palpitations Martinez/Lymph Reports easy bruising and Reports other (anemia) Aller/Immun Denies wheezing Physical Exam Vital Signs: Last Vital Signs Pulse 90 12/04/23 12:57 BP 120/80 12/04/23 12:57 BMI result Body Mass Index 22.4 Const General: cooperative, comfortable, no acute distress, well developed, alert, awake and Physically active Nutritional Appearance: well nourished and thin Orientation/consciousness: patient oriented x3 Limitations: no limitations HEENT Head: Yes normocephalic and Yes atraumatic Neck Neck: Yes trachea midline, Yes supple and Yes no JVD Resp Effort & Inspection: normal respiratory effort Auscultation: clear to auscultation bilaterally Cardio Jugular venous distension: no JVD Palpation: normal PMI Rate: regular rate Rhythm: regular rhythm Heart sounds: S1 normal heart sound present, S2 normal heart sound present, no click, no gallops, no murmurs and no rubs GI Auscultation: normal bowel sounds Skin General skin exam: no rashes or lesions noted Neuro General: patient oriented x3 and no focal motor deficits Speech: No Abnormal speech present Extrem General: Yes no clubbing, cyanosis or edema Psych Appearance: grossly normal Assessment & Plan Assessment & Plan (1) SVT (supraventricular tachycardia): Comment: nl Echo, 30 day Holter, referred to cardiology 10/24 Code(s): I47.10 - Supraventricular tachycardia, unspecified Plan: Supraventricular tachycardia of AVNRT type. Highly symptomatic. She has had it for a long time although this episodes very prolonged leading to myocardial injury and troponin release. With SVT she does get symptoms of chest discomfort. Obstructive coronary artery disease needs to be ruled out. Will suggest a stress echocardiogram to further assess for the same. I had a very long discussion about SVT and pathophysiology as SVT along with dual AV stephen physiology. We discussed about stimulants that makes side SVT. We discussed about stress mitigation strategies. I had a detailed discussion about various vagal maneuvers. She has had minimal symptoms at current metoprolol therapy. Mechanism of medical therapy was discussed. Will switch her to Toprol-XL 50 mg a day for ease taking medications. Avoidance of stimulants was discussed we also discussed about catheter based therapy with ablation of the slow pathway. She got very anxious about the same and wants to perform medical therapy unless she has major recurrence. She is advised to keep a log of her symptoms and potential triggers. She understands. Will follow up in the clinic in 3 months time, sooner p.r.n.. Thank you for allowing me to partake in the care. There was runner out present during the entire time. Orders: Orders CA echo stress exercise Today I47.10 - Supraventricular tachycardia, unspecified Medications: New metoprolol succinate ER (Toprol XL) 50 mg PO DAILY 30 tabs 5RF Discontinued metoprolol tartrate Discontinued Reason: Doctor's Order 25 mg PO BID 180 tabs 1RF Coding Level of Care Code New Pt Level 4 (18417) Diagnoses SVT (supraventricular tachycardia) I47.10
[2023-12-04 12:57] VITALS: BP 120/80; PULSE 90; BMI 22.4
== END 2023-12-04 13:49 | disposition home or self-care (01) ==
PROVIDERS: PCP Internal Medicine; Visit Provider Internal Medicine Cardiovascular Disease
DX: I47.10 Supraventricular tachycardia, unspecified (principal)
CPT/HCPCS: 99214

== ENCOUNTER → 2023-12-04 12:36 | Outpatient (BNVA) | payer BC, SELFPAY | PROVIDERS: PCP Internal Medicine; Visit Provider Internal Medicine Cardiovascular Disease ==

== ENCOUNTER → 2024-01-03 10:43 | Outpatient (REF) | payer BC, SELFPAY ==
--- NOTE | 2024-01-03 10:46 | CA_ITS ---
Acquisition Time: 2024-01-03 10:45:00 Total Exercise Time: 00:11:37 Test Indications: SVT Medications: SEE H Protocol: EVA Max HR: 173 BPM 100% of Pred: 172 BPM Max BP: 160/078 mmHG Max Work Load: 13.4 METS Exercise stress test exercise 11 min 37 sec of Eva protocol achieving 100% MPHR, without anginal symptoms, without arrhythmias, with normotenisve response to exercise, without EKG changes. Echo images obtained by tech at rest and immediately post peak exercise, Definity contrast used. Test reviewed with Dr. John Referred By: Joby Jonh Overread By: Twyla Mcgraw
== END ==
LOC: HO.CARD 10:43
PROVIDERS: PCP Internal Medicine; Visit Provider Internal Medicine Cardiovascular Disease
DX: I47.10 Supraventricular tachycardia, unspecified (principal)
CPT/HCPCS: 93350; Q9957

== ENCOUNTER → 2024-01-03 10:46 | Outpatient (BNV) | payer BC, SELFPAY | PROVIDERS: PCP Internal Medicine; Visit Provider Nurse Practitioner | DX: I47.10 Supraventricular tachycardia, unspecified (principal) | CPT/HCPCS: 93016; 93018; 93350; 93352 ==

== ENCOUNTER 2024-02-14 13:57 | Outpatient (AMB) | payer BC, SELFPAY ==
[2024-02-14 14:00] VITALS: BP 118/76; PULSE 69; O2SAT 98; BMI 23.6
--- NOTE | 2024-02-14 14:05 | A.OFFPC_ITS ---
Vital Signs 02/14/24 14:00 Height 5 ft 3.9 in Weight 137 lb BMI 23.6 BP 118/76 Blood Pressure Location Rt brachial Position Sitting Pulse 69 Pulse Source Pulse Oximeter Pulse Oximetry (%) 98 Oxygen Delivery Method Room Air Intake Visit Reasons: Abdominal pain Intake Note: Pt is here today for a sick visit. Pt c/o abdominal pain on and off that usually starts in the afternoon. Allergies No Known Allergies Allergy (Verified 02/14/24 14:05) Tobacco use date assessed: 10/02/23 Dental Screening Dental Screen Date: 10/02/23 HPI Abdominal pain HPI Details Pt c/o 1 week of epigastric abd pain with the episode of nausea vomiting and increased bloating 6 days ago. The discomfort is worse after eating. Patient denies fever chills change in bowel habits hematochezia melena. [facility] Medical History Pelvic pain Abnormal mammogram Annual physical exam Family History Father Cancer Mother No problems noted. Social History Household Members Other:: , Housing: House Alcohol intake: unknown Patient Tobacco Use Status: Former Tobacco user (25 years ago) e-Cigarette/Vaping Use: Never Used Current occupational status: employed Cognitive needs: No Hearing needs: No Vision needs: No Questionnaire Thrive Questionnaire Date Thrive assessed: 11/16/23 LEONCIO-7 AMB Questionnaire LEONCIO-7 Date LEONCIO - 7 assessed: 11/16/23 Source: Developed by Drs. Eduard Torres, Snehal Michael, Hayder Nicholson and colleagues, with an educational shade from [employer]. Review of Systems Const All systems reviewed & are unremarkable except as noted in HPI and below Reports no additional complaints Eyes Reports no additional complaints Card Reports no additional complaints Resp Reports no additional complaints GI Reports no additional complaints Reports no additional complaints Physical exam (Primary Care) Vital Signs: Last Vital Signs Pulse 69 02/14/24 14:00 BP 118/76 02/14/24 14:00 Pulse Ox 98 02/14/24 14:00 Oxygen Delivery Method Room Air 02/14/24 14:00 BMI result Body Mass Index 23.6 Tobacco/Smoking Status: Tobacco use Status Tobacco use date assessed 10/02/23 02/14/24 14:12 Patient Tobacco Use Status Former Tobacco user (25 02/14/24 14:12 years ago) e-Cigarette/Vaping Use Never Used 02/14/24 14:12 Thrive Assessment: Date of Thrive Assessment Date Thrive assessed 11/16/23 02/14/24 14:12 Const General: no acute distress HENMT Head: Yes normal to inspection Eyes General: appearance normal, both eyes and all related structures Resp Effort & Inspection: normal respiratory effort Auscultation: clear to auscultation bilaterally Cardio Rhythm: regular rhythm Heart sounds: S1 normal heart sound present and S2 normal heart sound present GI Inspection: Yes normal to inspection Palpation (GI): Soft to palpation and No Rebound tenderness present Percussion: Yes normal to percussion Auscultation: normal bowel sounds Assessment and Plan Assessment & Plan (1) Epigastric abdominal pain: Code(s): R10.13 - Epigastric pain Plan: For the episodic gastritis patient will try Pepcid and probiotics. She was advised to monitor symptoms in relation to fatty food intake. if symptoms persist abdominal ultrasound will be obtained to rule out gallstones. (2) SVT (supraventricular tachycardia): Comment: nl Echo, 30 day Holter, referred to cardiology 10/24 Code(s): I47.10 - Supraventricular tachycardia, unspecified Plan: Continue metoprolol Coding Level of Care Code Est Pt Level 3 (64185) Diagnoses Epigastric abdominal pain R10.13 SVT (supraventricular tachycardia) I47.10
== END 2024-02-14 14:36 | disposition home or self-care (01) ==
PROVIDERS: PCP Internal Medicine; Visit Provider Internal Medicine
DX: R10.13 Epigastric pain (principal); I47.10 Supraventricular tachycardia, unspecified
CPT/HCPCS: 99213

== ENCOUNTER 2024-03-11 10:00 | Outpatient (AMB) | payer BC, SELFPAY ==
--- NOTE | 2024-03-11 10:09 | MHC.OFFVIS ---
Vital Signs 03/11/24 10:10 Height 5 ft 3.9 in Weight 130 lb 1.164 oz BMI 22.4 BP 110/70 Blood Pressure Location Lt brachial Position Sitting Pulse 60 Intake Visit Reasons: 3 mth f/up Intake Note: 3 month follow-up after testing feeling good Rheologist Required: Yes Rheologist Name: Fernanda castro [place] Allergies No Known Allergies Allergy (Verified 02/14/24 14:05) Medication List - Last Reconciled 03/11/24 by Joyb John MD azelaic acid 15% 1 appl topical BID metoprolol succinate ER (Toprol XL) 50 mg PO DAILY sertraline (Zoloft) 50 mg PO DAILY HPI Comments Details: Selena comes for follow-up. History was obtained with help of a [place] air [employer] operations inspector. She says since I last saw she would couple of episodes of SVT that was self terminating but over the last 2 weeks she has not had any. She role all doing well. Stress echocardiogram recently showed no evidence of myocardial ischemia. She feels well. ON LICENSE OF [facility] Medical History Pelvic pain Abnormal mammogram Annual physical exam Family History Father Cancer Mother No problems noted. Social History Household Members Other:: , Housing: House Alcohol intake: unknown Patient Tobacco Use Status: Former Tobacco user (25 years ago) e-Cigarette/Vaping Use: Never Used Current occupational status: employed Cognitive needs: No Hearing needs: No Vision needs: No Review of Systems Const Denies chills, Denies fatigue, Denies fever(s), Denies frequent falls, Denies weakness, Denies weight gain and Denies weight loss ENT Denies dizziness Card Denies chest pain, Denies leg edema, Denies lightheadedness, Denies palpitations, Denies dyspnea, Denies dyspnea on exertion, Denies orthopnea and Denies other (loss of consciousness) Resp Denies cough, Denies dyspnea and Denies dyspnea on exertion GI Denies hematochezia and Denies change in stool character Musc Denies abnormal gait, Denies muscle weakness, Denies numbness, Denies radiating pain into limb and Denies tingling Neuro Denies Abnormal speech present, Denies abnormal gait, Denies dizziness, Denies frequent falls, Denies numbness, Denies tingling and Denies weakness Endo Denies fatigue and Denies palpitations Physical Exam Vital Signs: Last Vital Signs Pulse 60 03/11/24 10:10 BP 110/70 03/11/24 10:10 BMI result Body Mass Index 22.4 Const General: cooperative, comfortable, no acute distress, well developed, alert, awake and Physically active Nutritional Appearance: well nourished and thin Orientation/consciousness: patient oriented x3 Limitations: no limitations Neck Neck: Yes trachea midline, Yes supple and Yes no JVD Resp Effort & Inspection: normal respiratory effort Auscultation: clear to auscultation bilaterally Cardio Jugular venous distension: no JVD Palpation: normal PMI Rate: regular rate Rhythm: regular rhythm Heart sounds: S1 normal heart sound present, S2 normal heart sound present, no click, no gallops, no murmurs and no rubs GI Auscultation: normal bowel sounds Skin General skin exam: no rashes or lesions noted Neuro General: patient oriented x3 and no focal motor deficits Speech: No Abnormal speech present Extrem General: Yes no clubbing, cyanosis or edema Psych Appearance: grossly normal Assessment & Plan Assessment & Plan (1) SVT (supraventricular tachycardia): Comment: nl Echo, 30 day Holter, referred to cardiology 10/24 Code(s): I47.10 - Supraventricular tachycardia, unspecified Category: Medical Plan: Supraventricular tachycardia of AVNRT type currently controlled on metoprolol therapy. She is doing well from that perspective. We again discussed about pathophysiology of SVT and management. We discussed about vagal maneuvers. Avoidance of stimulants and stress mitigation strategies were discussed. For now will continue metoprolol therapy but if she has recurrent episodes will pursue ablation. This was discussed with her. She understands agrees. Will follow up in the clinic in 1 year's time, sooner p.r.n.. Thank you for allowing me to partake in the care Coding Level of Care Code Est Pt Level 3 (91289) Diagnoses SVT (supraventricular tachycardia) I47.10
[2024-03-11 10:10] VITALS: BP 110/70; PULSE 60; BMI 22.4
== END 2024-03-11 10:42 | disposition home or self-care (01) ==
PROVIDERS: PCP Internal Medicine; Visit Provider Internal Medicine Cardiovascular Disease
DX: I47.10 Supraventricular tachycardia, unspecified (principal)
CPT/HCPCS: 99213

== ENCOUNTER → 2024-03-11 10:00 | Outpatient (BNVA) | payer BC, SELFPAY | PROVIDERS: PCP Internal Medicine; Visit Provider Internal Medicine Cardiovascular Disease ==

== ENCOUNTER 2024-05-27 09:57 | Outpatient (AMB) | payer BC, SELFPAY ==
[2024-05-27 10:16] VITALS: BP 120/74; PULSE 82; O2SAT 97; BMI 27.2
--- NOTE | 2024-05-27 10:16 | A.OFFPC_ITS ---
Vital Signs 05/27/24 10:16 Height 5 ft 3.9 in Weight 158 lb BMI 27.2 BP 120/74 Blood Pressure Location Rt brachial Position Sitting Pulse 82 Pulse Source Pulse Oximeter Pulse Oximetry (%) 97 Oxygen Delivery Method Room Air Intake Visit Reasons: Hip pain Intake Note: Pt is here today for a sick visit. Pt c/o R hip pain for about a month now. Allergies No Known Allergies Allergy (Verified 05/27/24 10:18) Medication List - Last Reconciled 05/27/24 by Elysia Chapa MD azelaic acid 15% 1 appl topical BID metoprolol succinate ER (Toprol XL) 50 mg PO DAILY 90 days sertraline (Zoloft) 50 mg PO DAILY Tobacco use date assessed: 05/27/24 Dental Screening Dental Screen Date: 10/02/23 HPI Hip pain HPI Details Pt c/o R lateral thigh and buttock pain on and off for 5 weeks, worse when getting up from sitting position or starting to walk. She denies lower back pain pain radiating to right lower extremity. Patient denies any injury. She exercises on a treadmill regularly PFSH Medical History Pelvic pain Abnormal mammogram Annual physical exam Surgical History No pertinent past surgical history Family History Father Cancer Mother No problems noted. Social History Household Members Other:: , Housing: House Alcohol intake: unknown Patient Tobacco Use Status: Former Tobacco user (25 years ago) e-Cigarette/Vaping Use: Never Used service: No Current occupational status: employed Cognitive needs: No Hearing needs: No Vision needs: No Questionnaire Thrive Questionnaire Date Thrive assessed: 11/16/23 LEONCIO-7 AMB Questionnaire LEONCIO-7 Date LEONCIO - 7 assessed: 11/16/23 Source: Developed by Drs. Eduadr Torres, Snehal Michael, Hayder Nicholson and colleagues, with an educational shade from [employer] Review of Systems Const All systems reviewed & are unremarkable except as noted in HPI and below Eyes Reports no additional complaints ENT Reports no additional complaints Card Reports no additional complaints Resp Reports no additional complaints GI Reports no additional complaints Reports no additional complaints Physical exam (Primary Care) Vital Signs: Last Vital Signs Pulse 82 05/27/24 10:16 BP 120/74 05/27/24 10:16 Pulse Ox 97 05/27/24 10:16 Oxygen Delivery Method Room Air 05/27/24 10:16 BMI result Body Mass Index 27.2 Tobacco/Smoking Status: Tobacco use Status Tobacco use date assessed 05/27/24 05/27/24 10:24 Patient Tobacco Use Status Former Tobacco user (25 05/27/24 10:24 years ago) e-Cigarette/Vaping Use Never Used 05/27/24 10:24 Thrive Assessment: Date of Thrive Assessment Date Thrive assessed 11/16/23 05/27/24 10:24 Const General: no acute distress HENMT Head: Yes normal to inspection Resp Effort & Inspection: normal respiratory effort Auscultation: clear to auscultation bilaterally Cardio Rhythm: regular rhythm Heart sounds: S1 normal heart sound present and S2 normal heart sound present Extrem Other: Reproducible tenderness right greater trochanteric area, slightly decreased range of motion right hip, straight leg rising 90 degrees bilaterally, there is no spinal or paraspinal tenderness in the lower lumbar region Assessment and Plan Assessment & Plan (1) Trochanteric bursitis of right hip: Code(s): M70.61 - Trochanteric bursitis, right hip Plan: Meloxicam is prescribed and stretching exercises given to the patient. The symptoms persist she will be referred to PT Medications: New meloxicam 15 mg PO DAILY 10 tabs 0RF Coding Level of Care Code Est Pt Level 3 (24415) Diagnoses Trochanteric bursitis of right hip M70.61
== END 2024-05-27 14:10 | disposition home or self-care (01) ==
PROVIDERS: PCP Internal Medicine; Visit Provider Internal Medicine
DX: M70.61 Trochanteric bursitis, right hip (principal)
CPT/HCPCS: 99213

== ENCOUNTER 2024-07-10 10:09 | Outpatient (AMB) | payer BC, SELFPAY ==
[2024-07-10 10:12] VITALS: BP 124/82; PULSE 73; O2SAT 97; BMI 26.9
--- NOTE | 2024-07-10 10:12 | MHC.PC.OV ---
Vital Signs 07/10/24 10:12 Height 5 ft 3.9 in Weight 156 lb BMI 26.9 BP 124/82 Blood Pressure Location Lt brachial Position Sitting Pulse 73 Pulse Source Pulse Oximeter Pulse Oximetry (%) 97 Oxygen Delivery Method Room Air Intake Visit Reasons: Bleeding nose Intake Note: Pt is here today for a sikc visit. Pt c/o nose bleeding, post nasal drip and cough. Pt also states that her R leg is still painful. Allergies No Known Allergies Allergy (Verified 07/10/24 10:15) Medication List - Last Reconciled 07/10/24 by Elysia Chapa MD azelaic acid 15% 1 appl topical BID metoprolol succinate ER (Toprol XL) 50 mg PO DAILY 90 days sertraline (Zoloft) 50 mg PO DAILY Tobacco use date assessed: 07/10/24 Dental Screening Dental Screen Date: 07/10/24 Did you have a dental visit in the last 12 months?: Yes Did you have a dental problem in the last 6 months where you did not have access to dental care?: No Was dental information given to patient?: Patient has dentist HPI HPI Comments History of Present Illness Details Patient complains of symptoms runny nose postnasal drip bloody discharge from like nostril for 3 days. She denies fever chills sore throat body aches. Patient denies seasonal allergies. She complains of persistent right lateral thigh pain worse when starting to walk. She denies weakness or numbness in extremity. Meloxicam was helpful but the symptoms persisted after the treatment. [facility] Medical History Pelvic pain Abnormal mammogram Annual physical exam Surgical History No pertinent past surgical history Family History Father Cancer Mother No problems noted. Social History Household Members Other:: , Housing: House Alcohol intake: unknown Patient Tobacco Use Status: Former Tobacco user e-Cigarette/Vaping Use: Never Used service: No Current occupational status: employed Cognitive needs: No Hearing needs: No Vision needs: No Questionnaire Thrive Questionnaire Date Thrive assessed: 11/16/23 I am a: Patient What is your living situation today?: I choose not to answer this question Within the past 12 months, did the food you bought not last and you didn't have the money to get more?: I choose not to answer this question Within the past 12 months, did you worry whether your food would run out before you got money to buy more?: I choose not to answer this question Do you have trouble paying for medicines?: I choose not to answer this question Do you have trouble getting transportation to medical appointments?: I choose not to answer this question Do you have trouble paying your heating and electricity bill?: I choose not to answer this question Do you have trouble taking care of your child, family member or friend?: I choose not to answer this question Do you have trouble with day-to-day activities such as bathing, preparing meals, shopping, managing finances, etc.?: I choose not to answer this question Are you interested in more education?: I choose not to answer this question Please select the resources that you would like help with: None Currently or been in a relationship where the following occur: I choose not to answer THRIVE Score: 0 AUDIT C Alcohol Use Questionnaire (AUDIT-C) 1. How often do you have a drink containing alcohol?: Never Total Score: 0 LEONCIO-7 AMB Questionnaire LEONCIO-7 Date LEONCIO - 7 assessed: 11/16/23 Feeling nervous, anxious, or on edge: 0 = Not at all Not being able to stop or control worryin = Not at all Worrying too much about different things: 0 = Not at all Trouble relaxin = Not at all Being so restless that it is hard to sit still: 0 = Not at all Becoming easily annoyed or irritable: 0 = Not at all Feeling afraid as if something awful might happen: 0 = Not at all Total LEONCIO-7 score (0-4 normal; 5-9 mild; 10-14 moderate; 15-21 severe): 0 Source: Developed by Drs. Eduard Torres, Snehal Michael, Hayder Nicholson and colleagues, with an educational shade from [employer] Review of Systems Const All systems reviewed & are unremarkable except as noted in HPI and below Eyes Reports no additional complaints ENT Reports no additional complaints Card Reports no additional complaints Resp Reports no additional complaints GI Reports no additional complaints Physical exam (Primary Care) Vital Signs: Last Vital Signs Pulse 73 07/10/24 10:12 BP 124/82 07/10/24 10:12 Pulse Ox 97 07/10/24 10:12 Oxygen Delivery Method Room Air 07/10/24 10:12 BMI result Body Mass Index 26.9 Tobacco/Smoking Status: Tobacco use Status Tobacco use date assessed 07/10/24 07/10/24 10:16 Patient Tobacco Use Status Former Tobacco user 07/10/24 10:16 e-Cigarette/Vaping Use Never Used 07/10/24 10:16 Thrive Assessment: Date of Thrive Assessment Date Thrive assessed 11/16/23 07/10/24 10:16 Currently or been in a relationship where the following occur: I choose not to answer Const General: no acute distress HENMT Ears: TM's normal bilaterally General nose exam: Abnormal mucous membranes and turbinates present erythematous and Nasal discharge present bloody on the right and mucoid Face and sinus: Yes normal facial exam and No sinus tenderness Throat: Yes postnasal drainage Eyes General: appearance normal, both eyes and all related structures Neck Neck: Yes supple Resp Effort & Inspection: normal respiratory effort Auscultation: clear to auscultation bilaterally Cardio Rhythm: regular rhythm Heart sounds: S1 normal heart sound present and S2 normal heart sound present Back/Spine/Pelvis Other: Reproducible tenderness over right trochanteric area, slightly decreased range of motion of the right hip, straight leg rising 90 degrees bilaterally Coding Level of Care Code Est Pt Level 3 (64449) Diagnoses Epistaxis R04.0 Trochanteric bursitis of right hip M70.61 Assessment & Plan Assessment & Plan (1) Epistaxis: Code(s): R04.0 - Epistaxis Plan: Patient was advised to take Claritin for a week if the symptoms persist she will be referred to eat (2) Trochanteric bursitis of right hip: Code(s): M70.61 - Trochanteric bursitis, right hip Category: Medical Plan: Referred to physical therapy and check R hip XR Orders: Orders PT Evaluation and Treatment Today M70.61 - Trochanteric bursitis, right hip XR hip RT min 2V Today M70.61 - Trochanteric bursitis, right hip Medications: New mupirocin 2% 1 appl topical BID 15 grams 0RF
== END 2024-07-10 11:21 | disposition home or self-care (01) ==
PROVIDERS: PCP Internal Medicine; Visit Provider Internal Medicine
DX: R04.0 Epistaxis (principal); M70.61 Trochanteric bursitis, right hip

== ENCOUNTER → 2024-07-10 10:09 | Outpatient (BNVA) | payer BC, SELFPAY | PROVIDERS: PCP Internal Medicine; Visit Provider Internal Medicine ==

== ENCOUNTER 2024-07-10 11:13 | Outpatient (REF) | payer BC, SELFPAY ==
--- NOTE | ~2024-07-10 | XR_ITS ---
EXAMINATION: XR RIGHT HIP 2 VIEWS CLINICAL INFORMATION: Trochanteric bursitis, right hip M70.61. COMPARISON: None available. TECHNIQUE: Two views of the right hip. FINDINGS: Visualized portion of the proximal right femur demonstrate no fracture. Femoral head is well-seated within the acetabulum. Femoral acetabular joint space is well-maintained. Small pelvic calcifications are likely vascular in nature. XR/XR hip RT min 2V IMPRESSION: Unremarkable radiographs of the right hip. Electronically signed by: Heath Han MD 09/16/2024 12:34 PM MAURO VELAZQUEZ
== END 2024-07-10 11:14 | disposition home or self-care (01) ==
LOC: HO.HMGCX 11:13
PROVIDERS: PCP Internal Medicine; Visit Provider Internal Medicine
DX: M70.61 Trochanteric bursitis, right hip (principal)
CPT/HCPCS: 73502

== ENCOUNTER 2024-07-22 09:48 | Outpatient (AMB) | payer BC, SELFPAY ==
[2024-07-22 10:05] VITALS: BP 126/80; PULSE 80; O2SAT 98; BMI 26.9
--- NOTE | 2024-07-22 10:05 | MHC.PC.OV ---
Vital Signs 07/22/24 10:05 Height 5 ft 3.9 in Weight 156 lb BMI 26.9 BP 126/80 Blood Pressure Location Lt brachial Position Sitting Pulse 80 Pulse Source Pulse Oximeter Pulse Oximetry (%) 98 Oxygen Delivery Method Room Air Intake Visit Reasons: Follow up Intake Note: Pt is here today for a sick visit. Pt c/o cough for last 2 weeks. Pt also states that she has lower back pain. Allergies No Known Allergies Allergy (Verified 07/22/24 10:11) Medication List - Last Reconciled 07/22/24 by Elysia Chapa MD azelaic acid 15% 1 appl topical BID metoprolol succinate ER (Toprol XL) 50 mg PO DAILY 90 days mupirocin 2% 1 appl topical BID sertraline (Zoloft) 50 mg PO DAILY Tobacco use date assessed: 07/10/24 Dental Screening Dental Screen Date: 07/10/24 HPI Follow up HPI Details Pt c/o sinus congestion, productive cough with yellow sputum body aches for 1 week. She took azithromycin 500 mg for 2 days and will have 1 more tablet for today. She denies fever chills pleurisy [facility] Medical History Pelvic pain Abnormal mammogram Annual physical exam Surgical History No pertinent past surgical history Family History Father Cancer Mother No problems noted. Social History Household Members Other:: , Housing: House Alcohol intake: unknown Patient Tobacco Use Status: Former Tobacco user e-Cigarette/Vaping Use: Never Used service: No Current occupational status: employed Cognitive needs: No Hearing needs: No Vision needs: No Questionnaire PHQ-9 Over the last 2 weeks, how often have you been bothered by any of the following problems? 1. Little interest or pleasure in doing things: not at all 2. Feeling down, depressed, or hopeless: not at all 3. Trouble falling or staying asleep, or sleeping too much: not at all 4. Feeling tired or having little energy: not at all 5. Poor appetite or overeating: not at all 6. Feeling bad about yourself - or that you are a failure or have let yourself or your family down: not at all 7. Trouble concentrating on things, such as reading the newspaper or watching television: not at all 8. Moving or speaking so slowly that other people could have noticed. Or the opposite - being so fidgety or restless that you have been moving around a lot more than usual: not at all 9. Thoughts that you would be better off or of hurting yourself in some way: not at all Total score: 0 Depression Screening Interpretation: Negative Depression Screening Done: Yes 09892 - PHQ-9 Billing: Yes Source: Developed by Drs. Eduard Torres, Snehal Michael, Hayder Nicholson and colleagues, with an educational shade from [employer]. Thrive Questionnaire Date Thrive assessed: 07/10/24 I am a: Patient What is your living situation today?: I choose not to answer this question Within the past 12 months, did the food you bought not last and you didn't have the money to get more?: I choose not to answer this question Within the past 12 months, did you worry whether your food would run out before you got money to buy more?: I choose not to answer this question Do you have trouble paying for medicines?: I choose not to answer this question Do you have trouble getting transportation to medical appointments?: I choose not to answer this question Do you have trouble paying your heating and electricity bill?: I choose not to answer this question Do you have trouble taking care of your child, family member or friend?: I choose not to answer this question Do you have trouble with day-to-day activities such as bathing, preparing meals, shopping, managing finances, etc.?: I choose not to answer this question Are you currently unemployed and looking for a job?: Yes Are you interested in more education?: I choose not to answer this question Please select the resources that you would like help with: None Currently or been in a relationship where the following occur: I choose not to answer THRIVE Score: 0 LEONCIO-7 AMB Questionnaire LEONCIO-7 Date LEONCIO - 7 assessed: 11/16/23 Source: Developed by Drs. Eduard Torers, Hayder Payne and colleagues, with an educational shade from [employer]. Review of Systems Const All systems reviewed & are unremarkable except as noted in HPI and below Eyes Reports no additional complaints ENT Reports no additional complaints Card Reports no additional complaints Resp Reports no additional complaints GI Reports no additional complaints Physical exam (Primary Care) Vital Signs: Last Vital Signs Pulse 80 07/22/24 10:05 BP 126/80 07/22/24 10:05 Pulse Ox 98 07/22/24 10:05 Oxygen Delivery Method Room Air 07/22/24 10:05 BMI result Body Mass Index 26.9 Tobacco/Smoking Status: Tobacco use Status Tobacco use date assessed 07/10/24 07/22/24 10:06 Patient Tobacco Use Status Former Tobacco user 07/22/24 10:06 e-Cigarette/Vaping Use Never Used 07/22/24 10:06 PHQ-9: PHQ-9 Score PHQ-9: Total score 0 07/22/24 10:15 Depression Screening Interpretation: Negative Thrive Assessment: Date of Thrive Assessment Date Thrive assessed 07/10/24 07/22/24 10:06 Currently or been in a relationship where the following occur: I choose not to answer Const General: no acute distress HENMT Head: Yes normal to inspection General nose exam: Abnormal mucous membranes and turbinates present erythematous Face and sinus: Yes sinus tenderness Throat: Yes postnasal drainage Neck Neck: Yes supple Resp Effort & Inspection: normal respiratory effort Auscultation: clear to auscultation bilaterally Cardio Rhythm: regular rhythm Heart sounds: S1 normal heart sound present and S2 normal heart sound present Coding Level of Care Code Est Pt Level 3 (35369) Diagnoses Upper respiratory infection J06.9 Assessment & Plan Assessment & Plan (1) Upper respiratory infection: Code(s): J06.9 - Acute upper respiratory infection, unspecified Category: Medical Plan: Patient will continue azithromycin, supportive care discussed with the patient , Lorri Steiner prescribed. Medications: New benzonatate 100 mg PO TID 20 caps 0RF
== END 2024-07-22 10:59 | disposition home or self-care (01) ==
PROVIDERS: PCP Internal Medicine; Visit Provider Internal Medicine
DX: J06.9 Acute upper respiratory infection, unspecified (principal)

== ENCOUNTER → 2024-07-22 09:48 | Outpatient (BNVA) | payer BC, SELFPAY | PROVIDERS: PCP Internal Medicine; Visit Provider Internal Medicine ==

== ENCOUNTER 2024-09-29 08:00 | Outpatient (RCR) | payer BC, SELFPAY ==
--- NOTE | 2024-08-07 08:45 | MHC.PT.EP ---
[facility] [place] Office [place] Office [place] Office [address] Dhara Hsu [address] [phone] F: [phone] F: [phone] F: [phone] F: [phone] Physical Therapy Plan of Care Date of Evaluation: 08/07/24 Date of Surgery: n/a Diagnosis: trochanteric bursitis of R hip Assessment: Patient is a 49 year old female presenting to PT with complaints of pain in her R hip. Pt reports onset of pain began about 2 months ago due to insidious onset. She presents today with impairments in pain, hip ROM, hip strength, muscle length. 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 Clinical presentation today is most consistent with signs and sx associated with R hip pain and pt will benefit from skilled PT 2 week x 8 weeks to address the following problems and impairments noted upon evaluation: pain, hip ROM, hip strength, muscle length. These problems limit the patient with the following functional activities: transfers, ADLs, work, ambulating, stair negotiation. The prescribed treatment plan of care is medically necessary. Co-morbidities of none were identified and taken into considerations of plan of care. Pt was educated on HEP, role of PT, prognosis, POC. Frequency and Duration: The patient will be seen 2 x week x 4 weeks Short Term Goals: Pt will demonstrate hip ROM with min to no pain in 2 weeks. Pt will demonstrate improved hip MMT strength by 1/3 grade in 2 weeks. Assisted Goals: Pt will demonstrate improved LEFI score by 9 points in 4 weeks for improved functional mobility. Pt will demonstrate ability to roll and transfer without pain in her hip in 4 weeks for return to PLOF. Pt will demonstrate ability to negotiate stairs with min to no pain in 4 weeks for improved access to her home. Treatment Plan: Modalities to reduce pain, spasms and effusion. Manual therapy to restore motion and function. Therapeutic exercise to improve strength and flexibility. Neuromuscular re-education for posture and balance. Therapeutic activities to return to functional activities of daily living. Electronically signed by: Lety Gallardo, PT, DPT, ATC Please sign and return to therapist. Thank you for your referral.
--- NOTE | 2024-09-29 08:53 | MHC.PT.DC ---
[facility] [place] Office [place] Office [place] Office [address] Dhara Hsu [address] [phone] F: [phone] F: [phone] F: [phone] F: [phone] Physical Therapy Discharge Report Diagnosis: trochanteric bursitis of R hip Date of Surgery: n/a Date of Evaluation: 08/07/24 Date of Discharge: 09/29/24 Treatments to Date: 8 Cancellations to Date: 1 No Shows to Date: 0 Discharge Status: Independent with HEP Recommend MD Follow-up Discharge Summary: 09/29/2024: Pt has made some progress since start of care however she is still having pain at times worse than others. She has been compliant with her program but unfortunately has not felt significant improvement. At this time based on lack of progress it is no longer indicated to continue with skilled PT. I recommend following up with her provider for more imaging and management of pain. Electronically signed by: Lety Gallardo, PT, DPT, ATC Please sign and return to therapist. Thank you for your referral.
== END 2024-09-29 08:53 | disposition home or self-care (01) ==
LOC: HO.PTCHIC 08:00
PROVIDERS: PCP Internal Medicine; Visit Provider Internal Medicine
DX: M70.61 Trochanteric bursitis, right hip (principal)
CPT/HCPCS: 97110; 97140; 97161

== ENCOUNTER 2024-11-26 11:27 | Outpatient (AMB) | payer BC, SELFPAY ==
[2024-11-26 11:41] VITALS: BP 128/74; PULSE 75; RESP 18; TEMP 36.9; O2SAT 98; BMI 28.4
--- NOTE | 2024-11-26 11:41 | A.OFFPC_ITS ---
Vital Signs 11/26/24 11:41 Height 5 ft 3.9 in Weight 165 lb BMI 28.4 BP 128/74 Blood Pressure Location Lt brachial Position Sitting Respiration 18 Pulse 75 Pulse Source Pulse Oximeter Temp 98.5 F Temp Source Oral Pulse Oximetry (%) 98 Oxygen Delivery Method Room Air Intake Visit Reasons: Annual PE Intake Note: Pt is here today for PE. Allergies No Known Allergies Allergy (Verified 11/26/24 11:41) Medication List - Last Reconciled 11/26/24 by Elysia Chapa MD azelaic acid 15% 1 appl topical BID metoprolol succinate ER (Toprol XL) 50 mg PO DAILY 90 days mupirocin 2% 1 appl topical BID sertraline (Zoloft) 50 mg PO DAILY Tobacco use date assessed: 11/26/24 Dental Screening Dental Screen Date: 11/26/24 Did you have a dental visit in the last 12 months?: Yes Did you have a dental problem in the last 6 months where you did not have access to dental care?: No Was dental information given to patient?: Patient has dentist HPI Annual PE HPI Details Patient presents for physical PFSH Medical History Pelvic pain Abnormal mammogram Annual physical exam Surgical History No pertinent past surgical history Family History Father Cancer Mother No problems noted. Social History Household Members Other:: , Housing: House Alcohol intake: unknown Patient Tobacco Use Status: Former Tobacco user e-Cigarette/Vaping Use: Never Used service: No Current occupational status: employed Cognitive needs: No Hearing needs: No Vision needs: No Questionnaire PHQ-9 Over the last 2 weeks, how often have you been bothered by any of the following problems? 1. Little interest or pleasure in doing things: not at all 2. Feeling down, depressed, or hopeless: not at all 3. Trouble falling or staying asleep, or sleeping too much: not at all 4. Feeling tired or having little energy: not at all 5. Poor appetite or overeating: not at all 6. Feeling bad about yourself - or that you are a failure or have let yourself or your family down: not at all 7. Trouble concentrating on things, such as reading the newspaper or watching television: not at all 8. Moving or speaking so slowly that other people could have noticed. Or the opposite - being so fidgety or restless that you have been moving around a lot more than usual: not at all 9. Thoughts that you would be better off or of hurting yourself in some way: not at all Total score: 0 Depression Screening Interpretation: Negative Depression Screening Done: Yes 14754 - PHQ-9 Billing: Yes Source: Developed by Drs. Eduard Torres, Snehal Michael, Hayder Nicholson and colleagues, with an educational shade from [employer]. Thrive Questionnaire Date Thrive assessed: 11/26/24 I am a: Patient What is your living situation today?: I have a steady place to live Within the past 12 months, did the food you bought not last and you didn't have the money to get more?: Never true Within the past 12 months, did you worry whether your food would run out before you got money to buy more?: Never true Do you have trouble paying for medicines?: No Do you have trouble getting transportation to medical appointments?: No Do you have trouble paying your heating and electricity bill?: No Do you have trouble taking care of your child, family member or friend?: No Do you have trouble with day-to-day activities such as bathing, preparing meals, shopping, managing finances, etc.?: No Are you currently unemployed and looking for a job?: No Are you interested in more education?: No Please select the resources that you would like help with: None THRIVE Score: 0 AUDIT C Alcohol Use Questionnaire (AUDIT-C) 1. How often do you have a drink containing alcohol?: Never 3. How often do you have six or more drinks on one occasion?: Never Total Score: 0 LEONCIO-7 AMB Questionnaire LEONCIO-7 Date LEONCIO - 7 assessed: 11/26/24 Feeling nervous, anxious, or on edge: 0 = Not at all Not being able to stop or control worryin = Not at all Worrying too much about different things: 0 = Not at all Trouble relaxin = Not at all Being so restless that it is hard to sit still: 0 = Not at all Becoming easily annoyed or irritable: 0 = Not at all Feeling afraid as if something awful might happen: 0 = Not at all Total LEONCIO-7 score (0-4 normal; 5-9 mild; 10-14 moderate; 15-21 severe): 0 Source: Developed by Drs. Eduard Torres, Snehal Michael, Hayder Nicholson and colleagues, with an educational shade from [employer]. LEONCIO-7 Assessment Billing LEONCIO-7 Assessment Tool: LEONCIO-7 Assessment 40355 Review of Systems Const All systems reviewed & are unremarkable except as noted in HPI and below Eyes Reports no additional complaints ENT Reports no additional complaints Card Reports no additional complaints Resp Reports no additional complaints GI Reports no additional complaints Reports no additional complaints Physical exam (Primary Care) Vital Signs: Last Vital Signs Temp 98.5 F 11/26/24 11:41 Pulse 75 11/26/24 11:41 Resp 18 11/26/24 11:41 BP 128/74 11/26/24 11:41 Pulse Ox 98 11/26/24 11:41 Oxygen Delivery Method Room Air 11/26/24 11:41 BMI result Body Mass Index 28.4 Tobacco/Smoking Status: Tobacco use Status Tobacco use date assessed 11/26/24 11/26/24 11:43 Patient Tobacco Use Status Former Tobacco user 11/26/24 11:43 e-Cigarette/Vaping Use Never Used 11/26/24 11:43 PHQ-9: PHQ-9 Score PHQ-9: Total score 0 11/26/24 11:43 Depression Screening Interpretation: Negative Thrive Assessment: Date of Thrive Assessment Date Thrive assessed 11/26/24 11/26/24 11:43 Const General: no acute distress HENMT Head: Yes normal to inspection Ears: hearing grossly normal bilaterally Face and sinus: Yes normal facial exam Mouth: Normal oral and palatal mucosa present Throat: Yes posterior oropharynx normal Eyes General: appearance normal, both eyes and all related structures Neck Neck: Yes no lymphadenopathy and Yes supple Resp Effort & Inspection: normal respiratory effort Auscultation: clear to auscultation bilaterally Cardio Rhythm: regular rhythm Heart sounds: S1 normal heart sound present and S2 normal heart sound present GI Inspection: Yes normal to inspection Palpation (GI): Soft to palpation Percussion: Yes normal to percussion Auscultation: normal bowel sounds Coding Level of Care Code Est Pt Prev Care 40-64y(20637) Diagnoses Annual physical exam Z00. SVT (supraventricular tachycardia) I47.10 Additional Codes LEONCIO-7 Assessment Billing - LEONCIO-7 Assessment Tool: LEONCIO-7 Assessment 02196 ([id number]) PHQ-9 - 28825 - PHQ-9 Billing: Yes ([id number]) Assessment & Plan Assessment & Plan (1) Annual physical exam: Comment: Negative Pap 11/2022, negative Cologuard November 2022 Code(s): Z00.00 - Encounter for general adult medical examination without abnormal findings Category: Medical Plan: Well-balanced diet regular physical activity discussed with the patient she will return for fasting blood work. Patient is up-to-date with the mammogram and had negative Cologuard in 12/18/2022, she declined colonoscopy (2) SVT (supraventricular tachycardia): Comment: nl Echo, 30 day Holter, referred to cardiology 10/24 Code(s): I47.10 - Supraventricular tachycardia, unspecified Category: Medical Plan: Continue metoprolol Orders: Orders Comprehensive [place]. Panel Fast Today Z00.00 - Encounter for general adult medical examination without abnormal findings Complete Blood Count Auto Diff Today Z00.00 - Encounter for general adult medical examination without abnormal findings TSH reflex Free T4 Today Z00.00 - Encounter for general adult medical examination without abnormal findings Complete Blood Count Auto Diff 1 Year I47.10 - Supraventricular tachycardia, unspecified, Z00.00 - Encounter for general adult medical examination without abnormal findings Lipid Panel 1 Year I47.10 - Supraventricular tachycardia, unspecified, Z00.00 - Encounter for general adult medical examination without abnormal findings TSH reflex Free T4 1 Year I47.10 - Supraventricular tachycardia, unspecified, Z00.00 - Encounter for general adult medical examination without abnormal findings UA w Microscopic 1 Year I47.10 - Supraventricular tachycardia, unspecified, Z00.00 - Encounter for general adult medical examination without abnormal findings Lipid Panel Today Z00.00 - Encounter for general adult medical examination without abnormal findings UA w Microscopic Today Z00.00 - Encounter for general adult medical examination without abnormal findings Comprehensive [place]. Panel Fast 1 Year I47.10 - Supraventricular tachycardia, unspecified, Z00.00 - Encounter for general adult medical examination without abnormal findings Medications: Refilled sertraline (Zoloft) 50 mg PO DAILY 90 tabs 3RF metoprolol succinate ER (Toprol XL) 50 mg PO DAILY 90 days 90 tabs 3RF
--- OUTSIDE RECORDS SUMMARY | 2024-11-26 14:23 | XMS_ITS | Clinical Summary ---
Author Organization [facility] it Address [address] [place] [address] Care Team Providers Care Supervisor Hand Silvering Name Role Phone ElmaNora nguyen Primary Care Pro vider Surgical History Surgery Date Site/Laterality Comments OTHER SURGICAL HISTORY PROCEDURE: DENIES PREVIOUS SURGERY BREAST BIOPSY PROCEDURE: BX BREAST; PERC NEEDLE CORE W/IMAG GUID; COMMENT: LT. BREST-BENIGN 2012 Family History Medical History Relation Name Comments Breast cancer Aunt paternal likley dx prio r to 50 yo Diabetes Father Liver cancer Father Diabetes Mother Colon cancer Neg Hx Ovarian cancer Neg Hx Relation Name Status Comments Aunt paternal Alive Brother Alive Daughter Alive Father (Age 60) lung cance r Maternal Grandfather Maternal Grandmother Mother Alive in [place] Paternal Grandfather Paternal Grandmother Sister Alive Social History Tobacco Use Types Packs/Day Years Used Date Smoking Tobacco: Former Smokeless Tobacco: Never Alcohol Use Standard Drinks/Week Comments No 0 (1 standard drink = 0.6 oz pur e alcohol) Comments Unknown Sex and Gender Information Value Date Recorded Sex Assigned at Not on file Legal Sex Female 5:31 AM EST Gender Identity Not on file Sexual Orientation Not on file Obstetrics History Plan of Treatment Upcoming Encounters Date Type Department Care Team (Late st Contact Info) Description 02/28/2025 11:30 AM EDT Appointment Radiology Department - [address] [phone] Health Maintenance Due Date Last Done Comments DTaP,Tdap,and Td Vaccines (1 - Tdap) 1994 Hepatitis B Vaccines (1 of 3 - 19+ 3-dose series) 1994 Cervical Cancer Screening: Pap Smear 1996 Colorectal Cancer Screening: Colonoscopy 09/09/2022 Depression Screening 09/09/2022 HIV Screening 09/09/2022 Hepatitis C Screening 09/09/2022 Social Influencers of Health Screening 09/09/2022 COVID-19 Vaccine ( season) 2024 Influenza Vaccine (#1) 2024 Breast Cancer Screening 02/15/2026 02/16/20 24, 02/16/2024, 01/13/2023, Additional history exists HIB Vaccines Aged Out No longer eligi ble based on patient's age to complete this topic HPV Vaccines Aged Out No longer eligi ble based on patient's age to complete this topic Hepatitis A Vaccines Aged Out No long er eligible based on patient's age to complete this topic IPV Vaccines Aged Out No longer eligi ble based on patient's age to complete this topic MMR Vaccines Aged Out No longer eligi ble based on patient's age to complete this topic Meningococcal ACWY Vaccine Aged Out N o longer eligible based on patient's age to complete this topic Meningococcal B Vacine Aged Out No lo nger eligible based on patient's age to complete this topic Pneumococcal Vaccine: Pediatrics (0 to 5 Years) and At-Risk Patients (6 to 64 Years) Aged Out No longer eligible based on patient's age to complete this topic RSV Immunization Patients Under 20 months Aged Out No longer eligible based on patient's age to complete this topic Varicella Vaccines Aged Out No longer eligible based on patient's age to complete this topic Procedures Procedure Name Priority Date/Time Associated Diagnosis Comments SCREENING MAMMOGRAPHY BI 2-VIEW BREAST INC CAD Routine 02/16/2024 11:27 AM EDT Encounter for screening mammogram for malignant neoplasm of breast from Last 3 Months or Most Recently Relevant to Health Maintenance Results * SCREENING MAMMOGRAPHY BI 2-VIEW BREAST INC CAD (02/16/2024 11:27 AM EDT) Anatomical Region Laterality Modality Radiographic Khadra ging 01/13/2023 12:0 9 PM EDT Narrative 02/18/2024 3:14 PM EDT This is a summary report. The complete report is available in the patient's medical record. If you cannot access the medical record, please contact the sending organization for a detailed fax or copy. Exam: Screening mammogram Findings: Digital bilateral full-field screening mammography is performed with tomosynthesis and interpreted with the aid of computer-aided detection. ??Comparison is made with 01/13/2023 and as far back as 07/21/2019. Breast parenchyma is composed of scattered fibroglandular densities. ??No new suspicious mass, architectural distortion, or suspicious calcifications. Impression: No mammographic evidence of malignancy. BI-RADS 1 - negative Procedure Note Jessica Iyer MD - 05/19/2024 This is a summary report. The complete report is available in thepatient's medical record. If you cannot access the medical record, pleasecontact the sending organization for a detailed fax or copy. Exam: Screening mammogram Findings: Digital bilateral full-field screening mammography is performedwith tomosynthesis and interpreted with the aid of computer-aideddetection. Comparison is made with 01/13/2023 and as far back as1. Breast parenchyma is composed of scattered fibroglandular densities. Nonew suspicious mass, architectural distortion, or suspiciouscalcifications. Impression: No mammographic evidence of malignancy. BI-RADS 1 - negative us Sadie Rondon MD IMG XR PROCEDURES Final Result from Last 3 Months or Most Recently Relevant to Health Maintenance Care Teams Supervisor Hand Silvering Relationship Specialty Start Date End Date Nora Daniel DO PCP - General Internal Medicine 07/30/15
== END 2024-11-26 13:08 | disposition home or self-care (01) ==
PROVIDERS: PCP Internal Medicine; Visit Provider Internal Medicine
DX: Z00.00 Encounter for general adult medical examination without abnormal findings (principal); I47.10 Supraventricular tachycardia, unspecified

== ENCOUNTER → 2024-11-26 11:27 | Outpatient (BNVA) | payer BC, SELFPAY | PROVIDERS: PCP Internal Medicine; Visit Provider Internal Medicine | DX: Z00.00 Encounter for general adult medical examination without abnormal findings (principal); I47.10 Supraventricular tachycardia, unspecified; Z79.899 Other long term (current) drug therapy | CPT/HCPCS: 96127 ==

== ENCOUNTER 2025-01-12 06:26 | Outpatient (REF) | payer BC, SELFPAY ==
--- OUTSIDE RECORDS SUMMARY | 2025-01-12 06:29 | XMS_ITS | Clinical Summary ---
Author Organization [facility] Address [address] [place] [address] Care Team Providers Care School Lunch Monitor Name Role Phone ElmaNora nguyen Primary Care [...] Maternal Grandfather Maternal Grandmother Mother Alive in [place] Paternal Grandfather Paternal Grandmother Sister Alive Social [...] 11:30 AM EDT Appointment Radiology Department - [address] [phone] Health Maintenance Due Date Last Done Comments DTaP,Tdap,and Td Vaccines (1 - Tdap) 1994 Hepatitis B Vaccines (1 of 3 - 19+ 3-dose series) 1994 Cervical Cancer Screening: Pap Smear 1996 Colorectal Cancer Screening: Colonoscopy 09/09/2022 Depression Screening 09/09/2022 HIV Screening 09/09/2022 Hepatitis C Screening 09/09/2022 Social Influencers of Health Screening 09/09/2022 COVID-19 Vaccine ( season) 2024 Influenza Vaccine (Season Ended) 2025 Breast Cancer Screening 02/15/2026 02/16/20 24, 02/16/2024, [...] age to complete this topic Meningococcal B Vaccine Aged Out No l onger eligible based on patient's age to complete [...] Recently Relevant to Health Maintenance Care Teams School Lunch Monitor Relationship Specialty Start Date End Date Nora Daniel DO PCP - General Internal Medicine 07/30/15
[2025-01-12 10:36] LABS: MANUAL DIFF FLAG NO
[2025-01-12 10:50] LABS: Basophils Percent Auto 0.4 % (0-2); Eosinophils Absolute Auto 0.1 X10*3/uL (0.0-0.4); Eosinophils Percent Auto 2.1 % (0-4); Hemoglobin 14.2 g/dl (12.0-16.0); Imm Gran Abs Auto 0.01 X10*3/uL (0.00-0.03); Imm Gran Pct Auto 0.2 % (0.0-0.4); Lymphocytes Absolute Auto 2.4 X10*3/uL (1.2-4.9); Lymphocytes Percent Auto 50.5 % (20-40); Mean Corpuscular HGB Conc 33.8 g/dl (31.0-35.0); Mean Corpuscular Hemoglobin 30.4 pg (27.0-33.0); Mean Corpuscular Volume 89.9 fL (80.0-98.0); Mean Platelet Volume 9.9 fL (9.4-12.3); Monocytes Absolute Auto 0.5 X10*3/uL (0.1-1.2); Monocytes Percent Auto 10.1 % (2-11); Neutrophils Absolute Auto 1.8 x10*3/uL (2.0-8.3); Neutrophils Percent Auto 36.7 % (45-73); Platelet Count 205 X10*3/uL (160-400); Red Blood Count 4.67 X10*6/uL (4.20-5.50); Red Cell Distribution Width 12.3 % (11.0-16.0); White Blood Count 4.8 X10*3/uL (4.8-10.8)
[2025-01-12 10:55] LABS: Appearance Urine Clear; Color Urine Dark Yellow; Glucose Urine UA Negative (Negative); Leukocyte Esterase Urine Large (3+) (Negative); Nitrite Urine Negative (Negative); UMIC TRIGGER UA YES; Urine Blood Negative (Negative); Urine Ketones Negative (Negative); Urine Protein Negative (Neg-Trace)
[2025-01-12 11:04] LABS: Bacteria Urine None Seen (None Seen); Hyaline Casts Urine 0-2 /LPF (0-2); RBC Urine 0-2 /HPF (0-2); WBC Urine >50 /HPF (0-5)
[2025-01-12 11:10] LABS: Alanine Aminotransferase 30 U/L (0-31); Albumin Level 4.2 g/dL (3.5-5.0); Alkaline Phosphatase 46 U/L (39-117); Anion Gap 10 (12-20); Aspartate Amino Transferase 30 U/L (5-31); Bilirubin Total 0.4 mg/dL (0.0-1.0); Blood Urea Nitrogen 13 mg/dL (9-16); Calcium 9.2 mg/dL (8.4-10.2); Carbon Dioxide 28 mmol/L (22-29); Chloride 106 mmol/L (96-108); Cholesterol 194 mg/dL (<200); Estimated Glomerular Filt Rate > 60; Glucose Fasting 92 mg/dL (60-99); HDL Cholesterol 59 mg/dL (>40); LDL Cholesterol Calculated 118 mg/dL (<100); Potassium 3.7 mmol/L (3.3-5.1); Sodium 140 mmol/L (135-145); Total Protein 6.6 g/dL (6.5-8.0); Triglycerides 88 mg/dL (<150)
[2025-01-12 11:27] LABS: TSH reflex Free T4 1.84 uIU/mL (0.32-4.0)
== END 2025-01-12 06:27 | disposition home or self-care (01) ==
LOC: HO.HMGCLDS 06:26
PROVIDERS: PCP Internal Medicine; Visit Provider Internal Medicine
DX: Z00.00 Encounter for general adult medical examination without abnormal findings (principal)
CPT/HCPCS: 36415; 80053; 80061; 81001; 84443; 85025

== ENCOUNTER 2025-01-12 08:42 | Outpatient (AMB) | payer BC, SELFPAY ==
--- NOTE | 2025-01-12 08:48 | MHC.PC.OV ---
Vital Signs 01/12/25 08:51 Height 5 ft 3.9 in Weight 156 lb BMI 26.9 BP 118/76 Blood Pressure Location Rt brachial Position Sitting Respiration 20 Pulse 67 Pulse Source Pulse Oximeter Temp 98.0 F Temp Source Oral Pulse Oximetry (%) 99 Oxygen Delivery Method Room Air Intake Visit Reasons: spot on tongue Intake Note: Pt is here today for a sick visit. Pt c/o dark spot on her tongue and burning sensation. Allergies No Known Allergies Allergy (Verified 11/26/24 11:41) Medication List - Last Reconciled 01/12/25 by Elysia Chapa MD azelaic acid 15% 1 appl topical BID metoprolol succinate ER (Toprol XL) 50 mg PO DAILY 90 days mupirocin 2% 1 appl topical BID sertraline (Zoloft) 50 mg PO DAILY valacyclovir 1,000 mg PO BID 5 days Tobacco use date assessed: 01/12/25 Dental Screening Dental Screen Date: 11/26/24 HPI spot on tongue HPI Details PATIENT COMPLAINS OF PAINFUL SORES ON HER TONGUE AND oral mucosa for 4 days. She denies fever chills sore throat cough upper respiratory symptoms PFSH Medical History Pelvic pain Abnormal mammogram Annual physical exam Surgical History No pertinent past surgical history Family History Father Cancer Mother No problems noted. Social History Household Members Other:: , Housing: House Alcohol intake: unknown Patient Tobacco Use Status: Former Tobacco user e-Cigarette/Vaping Use: Never Used service: No Current occupational status: employed Cognitive needs: No Hearing needs: No Vision needs: No Questionnaire Thrive Questionnaire Date Thrive assessed: 11/26/24 LEONCIO-7 AMB Questionnaire LEONCIO-7 Date LEONCIO - 7 assessed: 11/26/24 Source: Developed by Drs. Eduard Torres, Snehal Michael, Hayder Nicholson and colleagues, with an educational shade from [employer]. Review of Systems Const All systems reviewed & are unremarkable except as noted in HPI and below Eyes Reports no additional complaints ENT Reports no additional complaints Card Reports no additional complaints Resp Reports no additional complaints GI Reports no additional complaints Reports no additional complaints Physical exam (Primary Care) Vital Signs: Last Vital Signs Temp 98.0 F 01/12/25 08:51 Pulse 67 01/12/25 08:51 Resp 20 01/12/25 08:51 BP 118/76 01/12/25 08:51 Pulse Ox 99 01/12/25 08:51 Oxygen Delivery Method Room Air 01/12/25 08:51 BMI result Body Mass Index 26.9 Tobacco/Smoking Status: Tobacco use Status Tobacco use date assessed 01/12/25 01/12/25 08:56 Patient Tobacco Use Status Former Tobacco user 01/12/25 08:49 e-Cigarette/Vaping Use Never Used 01/12/25 08:49 Thrive Assessment: Date of Thrive Assessment Date Thrive assessed 11/26/24 01/12/25 08:49 Const General: no acute distress HENMT Head: Yes normal to inspection Ears: TM's normal bilaterally Face and sinus: Yes normal facial exam Mouth: moist mucous membranes abnormal (Shallow ulcers with the erythema on the tongue and oral mucosa) Eyes General: appearance normal, both eyes and all related structures Neck Neck: Yes supple Resp Effort & Inspection: normal respiratory effort Auscultation: clear to auscultation bilaterally Cardio Rhythm: regular rhythm Heart sounds: S1 normal heart sound present and S2 normal heart sound present Coding Level of Care Code Est Pt Level 3 (52152) Diagnoses Viral stomatitis K12.1; B97.89 Assessment & Plan Assessment & Plan (1) Viral stomatitis: Code(s): K12.1 - Other forms of stomatitis; B97.89 - Other viral agents as the cause of diseases classified elsewhere Category: Medical Plan: Valtrex 1 g b.i.d. for 5 days is prescribed and supportive care discussed with the patient Medications: New valacyclovir 1,000 mg PO BID 10 tabs 0RF 5 days
[2025-01-12 08:51] VITALS: BP 118/76; PULSE 67; RESP 20; TEMP 36.7; O2SAT 99; BMI 26.9
--- OUTSIDE RECORDS SUMMARY | 2025-01-12 09:18 | XMS_ITS | Clinical Summary ---
Author Organization [facility] Address [address] [place] [address] Care Team Providers Care Director Music Name Role Phone ElmaNora nguyen Primary Care [...] Maternal Grandfather Maternal Grandmother Mother Alive in [place] Paternal Grandfather Paternal Grandmother Sister Alive Social [...] 11:30 AM EDT Appointment Radiology Department - [address] [phone] Health Maintenance Due Date Last Done Comments [...] Recently Relevant to Health Maintenance Care Teams Director Music Relationship Specialty Start Date End Date Nora Daniel DO PCP - General Internal Medicine 07/30/15
== END 2025-01-12 09:35 | disposition home or self-care (01) ==
LOC: HO.HMCC 08:43
PROVIDERS: PCP Internal Medicine; Visit Provider Internal Medicine
DX: K12.1 Other forms of stomatitis (principal); B97.89 Other viral agents as the cause of diseases classified elsewhere

== ENCOUNTER 2025-01-23 09:35 | Outpatient (REF) | payer BC, SELFPAY ==
--- OUTSIDE RECORDS SUMMARY | 2025-01-23 09:47 | XMS_ITS | Clinical Summary ---
Author Organization [facility] Address [address] [place] [address] Care Team Providers Care Router Operator Radial Name Role Phone ElmaNora nguyen Primary Care [...] Maternal Grandfather Maternal Grandmother Mother Alive in [place] Paternal Grandfather Paternal Grandmother Sister Alive Social [...] 11:30 AM EDT Appointment Radiology Department - [address] [phone] Health Maintenance Due Date Last Done Comments [...] Recently Relevant to Health Maintenance Care Teams Router Operator Radial Relationship Specialty Start Date End Date Nora Daniel DO PCP - General Internal Medicine 07/30/15
[2025-01-23 13:16] LABS: Appearance Urine Clear; Color Urine Yellow; Glucose Urine UA Negative (Negative); Leukocyte Esterase Urine Large (3+) (Negative); Nitrite Urine Negative (Negative); UMIC TRIGGER UA YES; Urine Blood Negative (Negative); Urine Ketones Negative (Negative); Urine Protein Negative (Neg-Trace)
[2025-01-23 13:20] LABS: Bacteria Urine None Seen (None Seen); Hyaline Casts Urine 0-2 /LPF (0-2); RBC Urine 0-2 /HPF (0-2)
== END 2025-01-23 09:36 | disposition home or self-care (01) ==
LOC: HO.HMGCLDS 09:35
PROVIDERS: PCP Internal Medicine; Visit Provider Internal Medicine
DX: Z00.00 Encounter for general adult medical examination without abnormal findings (principal)
CPT/HCPCS: 81001

== ENCOUNTER 2025-03-16 08:09 | Outpatient (AMB) | payer BC, SELFPAY ==
--- OUTSIDE RECORDS SUMMARY | 2025-03-16 08:19 | XMS_ITS | Clinical Summary ---
Author Organization [facility] [address] [place] [address] [place] [address] Phone Care Team Providers Care Inventory And Pricing Associate Name Role Phone WinstonmikeyNora Lima DO Primary Care Pro vider Encounters Date Type Department Care Team Description 02/28/2025 11:06 AM EDT - 02/28/2025 11:59 PM EDT Hospital Encounter Radiology Department [address] [phone] Encounter for screening mammogram for breast cancer Discharge Disposition: Home or Self Care from Last 3 Months Surgical History Surgery Date Site/Laterality Comments OTHER SURGICAL HISTORY PROCEDURE: DENIES PREVIOUS SURGERY BREAST BIOPSY 10/01/2011 - 09/30/2012 Left lt breast bx-benign- Family History Medical History Relation Name Comments Breast cancer Aunt paternal likely dx prio r to 50 yo Diabetes Father Liver cancer Father Diabetes Mother Colon cancer Neg Hx Ovarian cancer Neg Hx Relation Name Status Comments Aunt paternal Alive Brother Alive Daughter Alive Father (Age 60) lung cance r Maternal Grandfather Maternal Grandmother Mother Alive in [place] Paternal Grandfather Paternal Grandmother Sister Alive Social History Tobacco Use Types Packs/Day Years Used Date Smoking Tobacco: Former Smokeless Tobacco: Never Alcohol Use Standard Drinks/Week Comments No 0 (1 standard drink = 0.6 oz pur e alcohol) Comments No Sex and Gender Information Value Date Recorded Sex Assigned at Not on file Legal Sex Female 5:31 AM EST Gender Identity Not on file Sexual Orientation Not on file Obstetrics History Para Term AB IAB SAB Ectopic Multiple Livin g Live Births 1 Date Outcome GA Total Labor Labor/2nd/3rd Weight Sex Type Anes PTL Nuha A1 A5 Name Clin Term Plan of Treatment Health Maintenance Due Date Last Done Comments Hepatitis B Vaccines (1 of 3 - 19+ 3-dose series) 1994 Cervical Cancer Screening: Pap Smear 1996 Colorectal Cancer Screening: Colonoscopy 09/09/2022 Depression Screening 09/09/2022 HIV Screening 09/09/2022 Hepatitis C Screening 09/09/2022 Social Influencers of Health Screening 09/09/2022 COVID-19 Vaccine ( season) 2024 02/04/2021, 01/07/2021 Influenza Vaccine (Season Ended) 2025 Breast Cancer Screening 02/28/2027 02/29/20, 02/16/2024, 02/16/2024, Additional history exists DTaP,Tdap,and Td Vaccines (2 - Td or Tdap) 04/07/2030 04/07/2020 HIB Vaccines Aged Out No longer eligi [...] Procedure Name Priority Date/Time Associated Diagnosis Comments MG MAMMO DIGITAL SCREENING W FORREST BILAT Routine 02/28/2025 11:22 AM EDT Encounter for screening mammogram for breast cancer from Last 3 Months Results * MG Mammo Digital Screening w Forrest bilat (02/28/2025 11:22 AM EDT) Anatomical Region Laterality Modality Breast Bilateral Mammography 03/02/2025 11:0 9 AM EDT Impressions 03/02/2025 11:14 AM EDT Benign. BI-RADS CATEGORY: 1 - NEGATIVE RECOMMENDATION: Screening bilateral mammogram is recommended in 1 year. Mammo Location: [facility], [address] [place] [address], [id number], . -------- FINAL REPORT -------- Dictated By: Theodora Brito Dictated Date: 03/02/2025 11:09 ET Assigned Physician: Theodora Brito Reviewed and Electronically Signed By: Theodora Brito Signed Date: 03/02/2025 11:14 ET Workstation ID: [id number] Transcribed By: Self Edit Transcribed Date: 03/02/2025 11:09 ET Narrative 03/02/2025 11:14 AM EDT CLINICAL: 49 years old, Female, routine annual exam. COMPARISON: Mammograms dating back to 12/04/2020 with most recent of 02/16/2024. ?? TECHNIQUE: Bilateral MLO and CC views were obtained digitally with 3-D mammogram (digital breast tomosynthesis). Computer-aided detection was utilized in evaluation of this exam (CAD). FINDINGS: There is no evidence of suspicious mass or architectural distortion. ??No worrisome calcifications are evident. ??There has been no significant change from prior exam(s). ?? BREAST DENSITY: B - There are scattered areas of fibroglandular density. Procedure Note Theodora Brito MD - 03/02/2025 CLINICAL: 49 years old, Female, routine annual exam. COMPARISON: Mammograms dating back to 12/04/2020 with most recent of02/16/2024. TECHNIQUE: Bilateral MLO and CC views were obtained digitally with 3-Dmammogram (digital breast tomosynthesis). Computer-aided detection wasutilized in evaluation of this exam (CAD). FINDINGS: There is no evidence of suspicious mass or architectural distortion. Noworrisome calcifications are evident. There has been no significantchange from prior exam(s). BREAST DENSITY: B - There are scattered areas of fibroglandular density. IMPRESSION: Benign. BI-RADS CATEGORY: 1 - NEGATIVE RECOMMENDATION: Screening bilateral mammogram is recommended in 1 year. Mammo Location: [facility], [address] [place] [address], [id number], . -------- FINAL REPORT -------- Dictated By: Theodora Brito Dictated Date: 03/02/2025 11:09 ET Assigned Physician: Theodora Brito Reviewed and Electronically Signed By: Theodora Brito Signed Date: 03/02/2025 11:14 ET Workstation ID: [id number] Transcribed By: Self Edit Transcribed Date: 03/02/2025 11:09 ET Elysia Chapa MD IMG BI PROCEDURES Final Result from Last 3 Months Insurance [facility] Care Teams Inventory And Pricing Associate Relationship Specialty Start Date End Date Nora Daniel DO [facility] [address] [place] [address] PCP - General Internal Medicine 07/30/15
--- NOTE | 2025-03-16 08:20 | MHC.OFFVIS ---
Vital Signs 03/16/25 08:23 Height 5 ft 3.9 in Weight 159 lb 6.307 oz BMI 27.4 BP 124/72 Blood Pressure Location Lt brachial Position Sitting Pulse 71 Pulse Source Monitor Intake Visit Reasons: r/s 03/12/25 1 yr followup w/ekg [place] [employer] Required: Yes [place] Language: Portuguese [place] [employer] Name: [id number] Accompanied by: Self / Same As Patient Allergies No Known Allergies Allergy (Verified 11/26/24 11:41) Medication List - Last Reconciled 03/16/25 by Joby John MD azelaic acid 15% 1 appl topical BID metoprolol succinate ER (Toprol XL) 50 mg PO DAILY 90 days mupirocin 2% 1 appl topical BID sertraline (Zoloft) 50 mg PO DAILY valacyclovir 1,000 mg PO BID 5 days HPI Comments Details: Selena comes for follow-up. History was obtained with help of junior manufacturing engineer. Patient has been doing well overall and has not had any prolonged episodes of SVT but gets intermittent episodes of fast heart rate without any clear obvious triggers. These are not very bothersome. Symptoms subsided very quickly and she is able to do breathing maneuvers. She has no other symptoms. She remains pretty active. She complains of sleepiness which she thinks is probably related to metoprolol therapy. Although she seems to have also poor sleep pattern. She denies any significant excessive caffeine or alcohol intake. Denies any exertional chest pain or shortness of breath. [facility] Medical History Pelvic pain Abnormal mammogram Annual physical exam Surgical History No pertinent past surgical history Family History Father Cancer Mother No problems noted. Social History Household Members Other:: , Housing: House Alcohol intake: unknown Patient Tobacco Use Status: Former Tobacco user e-Cigarette/Vaping Use: Never Used service: No Current occupational status: employed Cognitive needs: No Hearing needs: No Vision needs: No Review of Systems Const Denies chills, Denies fatigue, Denies fever(s), Denies frequent falls, Denies weakness, Denies weight gain and Denies weight loss ENT Denies dizziness Card Denies chest pain, Denies leg edema, Denies lightheadedness, Denies palpitations, Denies dyspnea and Denies dyspnea on exertion Resp Denies cough, Denies dyspnea and Denies dyspnea on exertion GI Denies hematochezia Musc Denies abnormal gait, Denies muscle weakness, Denies numbness, Denies radiating pain into limb and Denies tingling Neuro Denies Abnormal speech present, Denies abnormal gait, Denies dizziness, Denies frequent falls, Denies numbness, Denies tingling and Denies weakness Endo Denies fatigue and Denies palpitations Physical Exam Vital Signs: Last Vital Signs Pulse 71 03/16/25 08:23 BP 124/72 03/16/25 08:23 BMI result Body Mass Index 27.4 Const General: cooperative, comfortable, no acute distress, well developed, alert, awake and Physically active Nutritional Appearance: well nourished and thin Orientation/consciousness: patient oriented x3 Limitations: no limitations Neck Neck: Yes trachea midline, Yes supple and Yes no JVD Resp Effort & Inspection: normal respiratory effort Auscultation: clear to auscultation bilaterally Cardio Jugular venous distension: no JVD Palpation: normal PMI Rate: regular rate Rhythm: regular rhythm Heart sounds: S1 normal heart sound present, S2 normal heart sound present, no click, no gallops, no murmurs and no rubs GI Auscultation: normal bowel sounds Skin General skin exam: no rashes or lesions noted Neuro General: patient oriented x3 and no focal motor deficits Speech: No Abnormal speech present Extrem General: Yes no clubbing, cyanosis or edema Psych Appearance: grossly normal Office Procedures EKG Details: EKG shows normal sinus rhythm normal EKG [id number]-[id number], Complete Assessment & Plan Assessment & Plan (1) SVT (supraventricular tachycardia): Comment: greta [place], 30 day Holter, referred to cardiology 10/24 Code(s): I47.10 - Supraventricular tachycardia, unspecified Category: Medical Plan: Supraventricular tachycardia in this middle-aged woman. She has had brief episodes but these are not life-limiting. She is quite happy with her medical therapy and Toprol. Overall she does complain of some increased drowsiness but this seems to be due to lack of sleep rather than effects of medicines. Although I have discussed that she can switch her metoprolol time to more during and before her sleep hours. Continue avoid stimulants. We discussed about vagal maneuvers again. We also discussed about additional therapy including ablation if need be if she has intolerable side effects or has continued episodes despite medical therapy. She understands and agrees. We discussed about mechanism of SVT again. Will follow up in the clinic in 1 year's time, sooner p.r.n.. Thank you for allowing me to partake in her care Coding Level of Care Code Est Pt Level 4 (02445) Complex EM visit Add On G2211 Diagnoses SVT (supraventricular tachycardia) I47.10 CPT Codes EKG - CPT: 26713-[id number], Complete ([id number])
[2025-03-16 08:23] VITALS: BP 124/72; PULSE 71; BMI 27.4
== END 2025-03-16 08:44 | disposition home or self-care (01) ==
LOC: HO.HCS 08:09
PROVIDERS: PCP Internal Medicine; Visit Provider Internal Medicine Cardiovascular Disease
DX: I47.10 Supraventricular tachycardia, unspecified (principal)
CPT/HCPCS: 93010; 99214

== ENCOUNTER → 2025-03-16 08:09 | Outpatient (BNVA) | payer BC, SELFPAY | PROVIDERS: PCP Internal Medicine; Visit Provider Internal Medicine Cardiovascular Disease | DX: I47.10 Supraventricular tachycardia, unspecified (principal) | CPT/HCPCS: 93005 ==

== ENCOUNTER 2025-05-05 10:19 | Outpatient (AMB) | payer BC, SELFPAY ==
[2025-05-05 10:31] VITALS: BP 120/74; PULSE 73; RESP 18; TEMP 36.6; O2SAT 99; BMI 27.4
--- NOTE | 2025-05-05 10:31 | MHC.PC.OV ---
Vital Signs 05/05/25 10:31 Height 5 ft 3.9 in Weight 159 lb BMI 27.4 BP 120/74 Blood Pressure Location Rt brachial Position Sitting Respiration 18 Pulse 73 Pulse Source Pulse Oximeter Temp 97.8 F Temp Source Oral Pulse Oximetry (%) 99 Oxygen Delivery Method Room Air Intake Visit Reasons: Follow up Intake Note: Pt is here today for a sick visit. Pt c/o burning sensation on her tongue and throat. Allergies No Known Allergies Allergy (Verified 05/05/25 10:36) Medication List - Last Reconciled 05/05/25 by Elysia Chapa MD azelaic acid 15% 1 appl topical BID metoprolol succinate ER (Toprol XL) 50 mg PO DAILY 90 days mupirocin 2% 1 appl topical BID sertraline (Zoloft) 50 mg PO DAILY valacyclovir 1,000 mg PO BID 5 days Tobacco use date assessed: 05/05/25 Dental Screening Dental Screen Date: 05/05/25 Did you have a dental visit in the last 12 months?: Yes Did you have a dental problem in the last 6 months where you did not have access to dental care?: No Was dental information given to patient?: Patient has dentist HPI Follow up HPI Details Pt c/o white coating on the tongue and oral mucosa and burning sensation in her mouth for 5 days. [facility] Medical History Pelvic pain Abnormal mammogram Annual physical exam Surgical History No pertinent past surgical history Family History Father Cancer Mother No problems noted. Social History Household Members Other:: , Housing: House Alcohol intake: unknown Patient Tobacco Use Status: Former Tobacco user e-Cigarette/Vaping Use: Never Used service: No Current occupational status: employed Cognitive needs: No Hearing needs: No Vision needs: No Questionnaire Thrive Questionnaire Date Thrive assessed: 11/26/24 AUDIT C Alcohol Use Questionnaire (AUDIT-C) 1. How often do you have a drink containing alcohol?: Never 3. How often do you have six or more drinks on one occasion?: Never Total Score: 0 LEONCIO-7 AMB Questionnaire LEONCIO-7 Date LEONCIO - 7 assessed: 11/26/24 Source: Developed by Drs. Eduard Torres, Snehal Michael, Hayder Nicholson and colleagues, with an educational shade from [employer]. Review of Systems Const All systems reviewed & are unremarkable except as noted in HPI and below Eyes Reports no additional complaints ENT Reports no additional complaints Card Reports no additional complaints Resp Reports no additional complaints GI Reports no additional complaints Reports no additional complaints Physical exam (Primary Care) Vital Signs: Last Vital Signs Temp 97.8 F 05/05/25 10:31 Pulse 73 05/05/25 10:31 Resp 18 05/05/25 10:31 BP 120/74 05/05/25 10:31 Pulse Ox 99 05/05/25 10:31 Oxygen Delivery Method Room Air 05/05/25 10:31 BMI result Body Mass Index 27.4 Tobacco/Smoking Status: Tobacco use Status Tobacco use date assessed 05/05/25 05/05/25 10:39 Patient Tobacco Use Status Former Tobacco user 05/05/25 10:39 e-Cigarette/Vaping Use Never Used 05/05/25 10:39 Thrive Assessment: Date of Thrive Assessment Date Thrive assessed 11/26/24 05/05/25 10:39 Const General: no acute distress HENMT Head: Yes normal to inspection Mouth: Abnormal oral and palatal mucosa present erythematous and white patches and tongue abnormal with white coating Throat: Yes posterior oropharynx normal Eyes General: appearance normal, both eyes and all related structures Neck Neck: Yes supple Resp Effort & Inspection: normal respiratory effort Auscultation: clear to auscultation bilaterally Coding Level of Care Code Est Pt Level 3 (78499) Diagnoses Oral candidiasis B37.0 Assessment & Plan Assessment & Plan (1) Oral candidiasis: Code(s): B37.0 - Candidal stomatitis Category: Medical Plan: Nystatin liquid swish and swallow is prescribed Medications: New nystatin swish and swallow 5 mL PO QID 250 mL 0RF
--- OUTSIDE RECORDS SUMMARY | 2025-05-05 10:57 | XMS_ITS | Clinical Summary ---
Author Organization [address] Address [address] [place] [address] Phone Care Team Providers Care Retail Property Manager Name Role Phone Nora Daniel DO Primary Care Pro vider Encounters Date Type Department Care Team Description 02/28/2025 11:06 AM EDT - 02/28/2025 11:59 PM EDT Hospital Encounter Radiology Department - [address] [phone] Encounter for screening mammogram for breast cancer [...] Maternal Grandfather Maternal Grandmother Mother Alive in [place] Paternal Grandfather Paternal Grandmother Sister Alive Social [...] Ectopic Multiple Livin g Live Births 1 10 01 1 Date Outcome GA Total Labor Labor/2nd/3rd Weight Sex Type Anes PTL Nuha A1 A5 Name Clin Term Plan of Treatment Upcoming Encounters Date Type Department Care Team ([facility] st Contact Info) Description 03/06/2026 8:30 AM EDT Appointment Radiology Department [address] [phone] Health Maintenance Due Date Last Done Comments Hepatitis B Vaccines (1 of 3 - 19+ 3-dose series) 1994 Cervical Cancer Screening: Pap Smear 1996 Colorectal Cancer Screening: Colonoscopy 09/09/2022 HIV Screening 09/09/2022 Hepatitis C Screening 09/09/2022 Social Influencers of Health Screening 09/09/2022 COVID-19 Vaccine (2023- season) 2024 02/04/2021, 01/07/2021 Depression Screening 10/01/2024 Pneumococcal Vaccine: 50+ Years (1 of 1 - PCV) 2025 Zoster Vaccines (1 of 2) 2025 Influenza Vaccine (#1) 2025 Breast Cancer Screening 02/28/2027 02/29/20, 02/16/2024, [...] is recommended in 1 year. Mammo Location: [facility], [address] [place] [address], [phone], . -------- FINAL REPORT -------- Dictated By: Theodora Brito Dictated Date: 03/02/2025 11:09 ET Assigned Physician: Theodora Brito Reviewed and Electronically Signed By: Theodora Brito Signed Date: 03/02/2025 11:14 ET Workstation ID: [id number] Transcribed By: Self Edit Transcribed Date: 03/02/2025 11:09 ET Narrative 03/02/2025 11:14 AM EDT CLINICAL: 49 years old, Female, routine annual exam. COMPARISON: Mammograms dating back to 12/04/2020 with most recent of 02/16/2024. TECHNIQUE: Bilateral MLO and CC views were obtained digitally with 3-D mammogram (digital breast tomosynthesis). Computer-aided detection was utilized in evaluation of this exam (CAD). FINDINGS: There is no evidence of suspicious mass or architectural distortion. No worrisome calcifications are evident. There has been no significant change from prior exam(s). BREAST DENSITY: B - [...] is recommended in 1 year. Mammo Location: [facility], [address] [place] [address], [phone], . -------- FINAL REPORT -------- Dictated By: Theodora Brito Dictated Date: 03/02/2025 11:09 ET Assigned Physician: Theodora Brito Reviewed and Electronically Signed By: Theodora Brito Signed Date: 03/02/2025 11:14 ET Workstation ID: [id number] Transcribed By: Self Edit Transcribed Date: 03/02/2025 11:09 ET us Elysia Chapa MD IMG BI PROCEDURES Final Resul t from Last 3 Months Insurance [facility] Care Teams Retail Property Manager Relationship Specialty Start Date End Date Nora Daniel DO [facility] [address] [place] [address] PCP - General Internal Medicine 07/30/15
== END 2025-05-05 12:29 | disposition home or self-care (01) ==
LOC: HO.HMCC 10:20
PROVIDERS: PCP Internal Medicine; Visit Provider Internal Medicine
DX: B37.0 Candidal stomatitis (principal)

== ENCOUNTER 2025-06-08 13:23 | Outpatient (AMB) | payer BC, SELFPAY ==
[2025-06-08 13:32] VITALS: BP 124/84; PULSE 68; RESP 18; TEMP 36.9; O2SAT 98; BMI 27.4
--- NOTE | 2025-06-08 13:32 | A.OFFPC_ITS ---
Vital Signs 06/08/25 13:32 Height 5 ft 3.9 in Weight 159 lb BMI 27.4 BP 124/84 Blood Pressure Location Lt brachial Position Sitting Respiration 18 Pulse 68 Pulse Source Pulse Oximeter Temp 98.4 F Temp Source Oral Pulse Oximetry (%) 98 Oxygen Delivery Method Room Air Intake Visit Reasons: Follow up on thrush Intake Note: Pt is here today for a follow up visit on mouth thrush. Pt states that when she is on medication it goes away and then when she is done with med it comes back and now its spreding to her palate. Pt states that she has been having burning sensation in her throat and where the wgite patches are in her mouth. Allergies No Known Allergies Allergy (Verified 06/08/25 13:33) Medication List - Last Reconciled 06/08/25 by Elysia Chapa MD azelaic acid 15% 1 appl topical BID metoprolol succinate ER (Toprol XL) 50 mg PO DAILY 90 days mupirocin 2% 1 appl topical BID sertraline (Zoloft) 50 mg PO DAILY Tobacco use date assessed: 06/08/25 Dental Screening Dental Screen Date: 05/05/25 HPI Follow up on thrush HPI Details Patient presents complaining of persistent burning sensation in her mouth and a heartburn on and off for the last few weeks. She completed course of nystatin for presumed thrush without any improvement in her symptoms. Patient reports eating late at night at 01:00 in the morning after returning from work and going to bed afterwards. She has been eating a lot of tomatoes and processed meats. Patient denies dysphagia or odynophagia. She reports increasing anxiety symptoms since the start of menopause about a year ago. [facility] Medical History (Updated 06/08/25 @ 15:35 by Elysia Chapa MD) SVT (supraventricular tachycardia) GERD (gastroesophageal reflux disease) Anxiety Pelvic pain Abnormal mammogram Annual physical exam Surgical History No pertinent past surgical history Family History Father Cancer Mother No problems noted. Social History Household Members Other:: , Housing: House Alcohol intake: unknown Patient Tobacco Use Status: Former Tobacco user e-Cigarette/Vaping Use: Never Used service: No Current occupational status: employed Cognitive needs: No Hearing needs: No Vision needs: No Questionnaire Thrive Questionnaire Date Thrive assessed: 11/26/24 LEONCIO-7 AMB Questionnaire LEONCIO-7 Date LEONCIO - 7 assessed: 11/26/24 Source: Developed by Drs. Eduard Torres, Snehal Michael, Hayder Nicholson and colleagues, with an educational shade from [employer]. Review of Systems Const All systems reviewed & are unremarkable except as noted in HPI and below Eyes Reports no additional complaints ENT Reports no additional complaints Card Reports no additional complaints Resp Reports no additional complaints GI Reports no additional complaints Reports no additional complaints Physical exam (Primary Care) Vital Signs: Last Vital Signs Temp 98.4 F 06/08/25 13:32 Pulse 68 06/08/25 13:32 Resp 18 06/08/25 13:32 BP 124/84 06/08/25 13:32 Pulse Ox 98 06/08/25 13:32 Oxygen Delivery Method Room Air 06/08/25 13:32 BMI result Body Mass Index 27.4 Tobacco/Smoking Status: Tobacco use Status Tobacco use date assessed 06/08/25 06/08/25 13:35 Patient Tobacco Use Status Former Tobacco user 06/08/25 13:35 e-Cigarette/Vaping Use Never Used 06/08/25 13:35 Thrive Assessment: Date of Thrive Assessment Date Thrive assessed 11/26/24 06/08/25 13:35 Const General: no acute distress HENMT Head: Yes normal to inspection Mouth: Normal oral and palatal mucosa present Throat: Yes posterior oropharynx normal Eyes General: appearance normal, both eyes and all related structures Neck Neck: Yes no lymphadenopathy and Yes supple Resp Effort & Inspection: normal respiratory effort Auscultation: clear to auscultation bilaterally Cardio Rhythm: regular rhythm Heart sounds: S1 normal heart sound present and S2 normal heart sound present Coding Level of Care Code Est Pt Level 4 (22497) Diagnoses GERD (gastroesophageal reflux disease) K21.9 Anxiety F41.9 SVT (supraventricular tachycardia) I47.10 Assessment & Plan Assessment & Plan (1) GERD (gastroesophageal reflux disease): Code(s): K21.9 - Gastro-esophageal reflux disease without esophagitis Category: Medical Plan: Anti GERD diet, not eating 2 hours before bedtime discussed with the patient omeprazole 40 mg daily will be started for 1 month. (2) Anxiety: Code(s): F41.9 - Anxiety disorder, unspecified Category: Medical Plan: Stress management discussed with the patient increase sertraline to 75 mg. Follow-up in 1 month (3) SVT (supraventricular tachycardia): Comment: nl [place], 30 day Holter, referred to cardiology 10/24 Code(s): I47.10 - Supraventricular tachycardia, unspecified Category: Medical Plan: Continue metoprolol follow-up with Cardiology Medications: New omeprazole 40 mg PO DAILY 30 caps 1RF Refilled sertraline (Zoloft) 50 mg PO DAILY 135 tabs 3RF Discontinued valacyclovir Discontinued Reason: Doctor's Order 1,000 mg PO BID 5 days 10 tabs 0RF nystatin swish and swallow Discontinued Reason: Doctor's Order 5 mL PO QID 250 mL 0RF
--- OUTSIDE RECORDS SUMMARY | 2025-06-08 15:40 | XMS_ITS | Clinical Summary ---
Author Organization [address] Address [address] [place] [address] Phone Care Team Providers Care Transcription Manager Name Role Phone LetihenriNora Lima DO Primary Care Pro vider Surgical History Surgery [...] Maternal Grandfather Maternal Grandmother Mother Alive in [place] Paternal Grandfather Paternal Grandmother Sister Alive Social [...] SAB Ectopic Multiple Livin g Live Births Date Outcome GA Total Labor Labor/2nd/3rd Weight Sex Type Anes PTL Nuha A1 A5 Name Clin Term Plan of Treatment Upcoming Encounters Date Type Department Care Team (Late st Contact Info) Description 03/06/2026 8:30 AM EDT Appointment Radiology Department [address] [phone] Health Maintenance Due Date Last Done Comments Hepatitis B Vaccines (1 of 3 - 19+ 3-dose series) 1994 Cervical Cancer Screening: Pap Smear 1996 Colorectal Cancer Screening: Colonoscopy 09/09/2022 HIV Screening 09/09/2022 Hepatitis C Screening 09/09/2022 Social Influencers of Health Screening 09/09/2022 Depression Screening 10/01/2024 Pneumococcal Vaccine: 50+ Years (1 of 1 - PCV) 2025 Zoster Vaccines (1 of 2) 2025 COVID-19 Vaccine (3 - 2024- season) 2025 02/04/2021, 01/07/2021 Influenza Vaccine (#1) 2025 Breast Cancer Screening [...] for breast cancer from Last 3 Months or Most Recently Relevant to Health Maintenance Results * MG Mammo Digital Screening w Forrest bilat (02/28/2025 11:22 AM EDT) Anatomical Region Laterality Modality Breast Bilateral Mammography 03/02/2025 11:0 9 AM EDT Impressions 03/02/2025 11:14 AM EDT Benign. BI-RADS CATEGORY: 1 - NEGATIVE RECOMMENDATION: Screening bilateral mammogram is recommended in 1 year. Mammo Location: [facility], [address] [place] [address], [address], . -------- FINAL REPORT -------- Dictated By: Theodora Brito Dictated Date: 03/02/2025 11:09 ET Assigned Physician: Theodora Brito Reviewed and Electronically Signed By: Theodora Brito Signed Date: 03/02/2025 11:14 ET Workstation ID: [id number] Transcribed By: Self Edit Transcribed Date: 03/02/2025 [...] is recommended in 1 year. Mammo Location: [facility], [address] [place] [address], [address], . -------- FINAL REPORT -------- Dictated By: Theodora Brito Dictated Date: 03/02/2025 11:09 ET Assigned Physician: Theodora Brito Reviewed and Electronically Signed By: Theodora Brito Signed Date: 03/02/2025 11:14 ET Workstation ID: [id number] Transcribed By: Self Edit Transcribed Date: 03/02/2025 11:09 ET us Elysia Chapa MD IMG BI PROCEDURES Final Resul t from Last 3 Months or Most Recently Relevant to Health Maintenance Insurance [facility] Care Teams Transcription Manager Relationship Specialty Start Date End Date Nora Daniel DO [facility] [address] [place] [address] PCP - General Internal Medicine 07/30/15
== END 2025-06-08 14:40 | disposition home or self-care (01) ==
LOC: HO.HMCC 13:24
PROVIDERS: PCP Internal Medicine; Visit Provider Internal Medicine
DX: K21.9 Gastro-esophageal reflux disease without esophagitis (principal); F41.9 Anxiety disorder, unspecified; I47.10 Supraventricular tachycardia, unspecified

== ENCOUNTER 2025-06-18 10:26 | Outpatient (REF) | payer BC, SELFPAY ==
[2025-06-18 14:59] LABS: Resp Syncy Virus RNA Qual PCR NEGATIVE (Negative); SARS COV2 PCR INHOUSE NEGATIVE (Negative)
== END 2025-06-18 10:27 | disposition home or self-care (01) ==
LOC: HO.LAB 10:26
PROVIDERS: PCP Internal Medicine; Visit Provider Nurse Practitioner Family
DX: Z03.818 Encounter for observation for suspected exposure to other biological agents ruled out (principal)
CPT/HCPCS: 87637

== ENCOUNTER 2025-06-18 10:26 | Outpatient (AMB) | payer BC, SELFPAY ==
[2025-06-18 10:37] VITALS: BP 138/78; PULSE 78; TEMP 37; O2SAT 98; BMI 27.4
--- NOTE | 2025-06-18 10:37 | AM.OFFWIN_ITS ---
Intake Vital Signs 06/18/25 10:37 Height 5 ft 3.9 in Weight 159 lb BMI 27.4 BP 138/78 Blood Pressure Location Rt brachial Position Sitting Pulse 78 Pulse Source Pulse Oximeter Temp 98.6 F Temp Source Oral Pulse Oximetry (%) 98 Oxygen Delivery Method Room Air Intake Visit Reasons: ep cough losing voice Intake Note: pt presents with laryngitis after coughing for 4 days Patient Tobacco Use Status: Former Tobacco user Allergies No Known Allergies Allergy (Verified 06/18/25 10:41) Medication List - Last Reconciled 06/18/25 by Mary Khan NP azelaic acid 15% 1 appl topical BID azithromycin 500 mg PO DAILY 3 days benzonatate 200 mg (2 x 100 mg) PO BID metoprolol succinate ER (Toprol XL) 50 mg PO DAILY 90 days omeprazole 40 mg PO DAILY sertraline (Zoloft) 50 mg PO DAILY Do you need a note to return to daycare/school/sports/work: No HPI HPI Comments History of Present Illness Details 50 y/o Female patient who presents to [facility] walk [facility] clinic with c/o Coughing, Laryngitis and Hoarseness for 4 days. Denies Fevers, chills, Nausea or vomiting. She has been taking NyQuil/DayQuil with minimal relief. [facility] Medical History (Updated 06/18/25 @ 11:11 by Mary Khan NP) Bronchitis SVT (supraventricular tachycardia) GERD (gastroesophageal reflux disease) Anxiety Pelvic pain Abnormal mammogram Annual physical exam Surgical History No pertinent past surgical history Family History Father Cancer Mother No problems noted. Social History Household Members Other:: , Housing: House Alcohol intake: unknown Patient Tobacco Use Status: Former Tobacco user e-Cigarette/Vaping Use: Never Used service: No Current occupational status: employed Cognitive needs: No Hearing needs: No Vision needs: No Review of Systems Const All systems reviewed & are unremarkable except as noted in HPI and below Physical Exam Vital Signs: Last Vital Signs Temp 98.6 F 06/18/25 10:37 Pulse 78 06/18/25 10:37 BP 138/78 06/18/25 10:37 Pulse Ox 98 06/18/25 10:37 Oxygen Delivery Method Room Air 06/18/25 10:37 BMI result Body Mass Index 27.4 Const General: no acute distress Nutritional Appearance: overweight Orientation/consciousness: patient oriented x3 HEENT Head: Yes normocephalic Ears: external ears normal and TM's normal bilaterally General nose exam: Nasal discharge present Face and sinus: Yes sinuses nontender Mouth: moist mucous membranes and Abnormal oral and palatal mucosa present erythematous Throat: Yes uvula midline Resp Effort & Inspection: normal respiratory effort and Actively coughing Auscultation: clear to auscultation bilaterally, no crackles, no rales, no rhonchi and no wheezes Cardio Heart sounds: S1 normal heart sound present and S2 normal heart sound present Neuro General: patient oriented x3, gait normal and moves all extremities Psych Speech and movement: Normal speech and movement present Assessment & Plan Assessment & Plan (1) Bronchitis: Code(s): J40 - Bronchitis, not specified as acute or chronic Plan: SARs ordered. Ordered Z-Pack for 3 days. Rest and Hydrate well with warm fluids Home remedies for Sore-throat and Hoarseness. Acetaminophen for relief. Orders: Orders SARS-CoV2/FLU/RSV Today J40 - Bronchitis, not specified as acute or chronic Medications: New benzonatate 200 mg (2 x 100 mg) PO BID 60 caps 0RF cough J40 - Bronchitis, not specified as acute or chronic azithromycin 500 mg PO DAILY 3 tabs 0RF Cough 3 days J40 - Bronchitis, not specified as acute or chronic Discontinued mupirocin 2% Discontinued Reason: Patient Completed Course 1 appl topical BID 15 grams 0RF Coding Level of Care Code Est Pt Level 4 (75226) Diagnoses Bronchitis J40 Time Spent (min) 20
--- OUTSIDE RECORDS SUMMARY | 2025-06-18 12:25 | XMS_ITS | Clinical Summary ---
Author Organization [address] Address [address] [place] [address] Phone Care Team Providers Care Managed Care Director Name Role Phone LetihenriNora Lima DO Primary [...] Maternal Grandfather Maternal Grandmother Mother Alive in [place] Paternal Grandfather Paternal Grandmother Sister Alive Social [...] Upcoming Encounters Date Type Department Care Team ([facility] st Contact Info) Description 03/06/2026 8:30 AM EDT Appointment Radiology Department - [address] [phone] Health Maintenance Due Date Last Done Comments [...] is recommended in 1 year. Mammo Location: [place] [facility], [address] [place] [address], [address], . -------- FINAL REPORT -------- Dictated By: Theodora Brito Dictated Date: 03/02/2025 11:09 ET Assigned Physician: Theodora Brito Reviewed and Electronically Signed By: Theodora Brito Signed Date: 03/02/2025 11:14 ET Workstation ID: [id number] Transcribed By: Self Edit Transcribed Date: 03/02/2025 [...] is recommended in 1 year. Mammo Location: [place] [facility], [address] [place] [address], [address], . -------- FINAL REPORT -------- Dictated By: Theodora Brito Dictated Date: 03/02/2025 11:09 ET Assigned Physician: Theodora Brito Reviewed and Electronically Signed By: Theodora Brito Signed Date: 03/02/2025 11:14 ET Workstation ID: [id number] Transcribed By: Self Edit Transcribed Date: 03/02/2025 11:09 ET us Elysia Chapa MD IMG BI PROCEDURES Final Resul t from Last 3 Months or Most Recently Relevant to Health Maintenance Insurance [facility] Care Teams Managed Care Director Relationship Specialty Start Date End Date Nora Daniel DO [facility] [address] [place] [address] PCP - General Internal Medicine 07/30/15
== END 2025-06-18 11:15 | disposition home or self-care (01) ==
PROVIDERS: PCP Internal Medicine; Visit Provider Nurse Practitioner Family
DX: J40 Bronchitis, not specified as acute or chronic (principal)

== ENCOUNTER 2025-07-16 10:53 | Outpatient (AMB) | payer BC, SELFPAY ==
[2025-07-16 11:01] VITALS: BP 120/74; PULSE 65; RESP 18; TEMP 36.9; O2SAT 97; BMI 27.4
--- NOTE | 2025-07-16 11:01 | A.OFFPC_ITS ---
Vital Signs 07/16/25 11:01 Height 5 ft 3.9 in Weight 159 lb BMI 27.4 BP 120/74 Blood Pressure Location Rt brachial Position Sitting Respiration 18 Pulse 65 Pulse Source Pulse Oximeter Temp 98.4 F Temp Source Oral Pulse Oximetry (%) 97 Oxygen Delivery Method Room Air Intake Visit Reasons: Follow up Intake Note: Pt is here today for a follow up visit. Allergies No Known Allergies Allergy (Verified 07/16/25 11:03) Medication List - Last Reconciled 07/16/25 by Elysia Chapa MD azelaic acid 15% 1 appl topical BID metoprolol succinate ER (Toprol XL) 50 mg PO DAILY 90 days omeprazole 40 mg PO DAILY sertraline (Zoloft) 50 mg PO DAILY Tobacco use date assessed: 07/16/25 Dental Screening Dental Screen Date: 05/05/25 HPI Follow up HPI Details Pt presents for f/u anxiety, better on 75 mg of sertraline. Patient reports persistent sensation of burning in the back of her throat and it is chest worse after eating spicy foods drinking coffee. Patient denies dysphagia odynophagia nausea vomiting. She has been taking omeprazole 40 mg daily for the last month with some relief. Patient denies constipation diarrhea hematochezia or melena. [facility] Medical History Bronchitis SVT (supraventricular tachycardia) GERD (gastroesophageal reflux disease) Anxiety Pelvic pain Abnormal mammogram Annual physical exam Surgical History No pertinent past surgical history Family History Father Cancer Mother No problems noted. Social History Household Members Other:: , Housing: House Alcohol intake: unknown Patient Tobacco Use Status: Former Tobacco user e-Cigarette/Vaping Use: Never Used service: No Current occupational status: employed Cognitive needs: No Hearing needs: No Vision needs: No Questionnaire PHQ-9 Over the last 2 weeks, how often have you been bothered by any of the following problems? 1. Little interest or pleasure in doing things: not at all 2. Feeling down, depressed, or hopeless: not at all 3. Trouble falling or staying asleep, or sleeping too much: not at all 4. Feeling tired or having little energy: not at all 5. Poor appetite or overeating: not at all 6. Feeling bad about yourself - or that you are a failure or have let yourself or your family down: not at all 7. Trouble concentrating on things, such as reading the newspaper or watching television: not at all 8. Moving or speaking so slowly that other people could have noticed. Or the opposite - being so fidgety or restless that you have been moving around a lot more than usual: not at all 9. Thoughts that you would be better off or of hurting yourself in some way: not at all Total score: 0 Depression Screening Interpretation: Negative Depression Screening Done: Yes Source: Developed by Drs. Eduard Torres, Snehal Michael, Hayder Nicholson and colleagues, with an educational shade from [employer]. Thrive Questionnaire Date Thrive assessed: 11/26/24 LEONCIO-7 AMB Questionnaire LEONCIO-7 Date LEONCIO - 7 assessed: 11/26/24 Feeling nervous, anxious, or on edge: 0 = Not at all Not being able to stop or control worryin = Not at all Worrying too much about different things: 0 = Not at all Trouble relaxin = Not at all Being so restless that it is hard to sit still: 0 = Not at all Becoming easily annoyed or irritable: 0 = Not at all Feeling afraid as if something awful might happen: 0 = Not at all Total LEONCIO-7 score (0-4 normal; 5-9 mild; 10-14 moderate; 15-21 severe): 0 Source: Developed by Drs. Eduard Torres, Snehal Michael, Hayder Nicholson and colleagues, with an educational shade from [employer]. Review of Systems Const All systems reviewed & are unremarkable except as noted in HPI and below ENT Reports no additional complaints Card Reports no additional complaints Resp Reports no additional complaints GI Reports no additional complaints Reports no additional complaints Physical exam (Primary Care) Vital Signs: Last Vital Signs Temp 98.4 F 07/16/25 11:01 Pulse 65 07/16/25 11:01 Resp 18 07/16/25 11:01 BP 120/74 07/16/25 11:01 Pulse Ox 97 07/16/25 11:01 Oxygen Delivery Method Room Air 07/16/25 11:01 BMI result Body Mass Index 27.4 Tobacco/Smoking Status: Tobacco use Status Tobacco use date assessed 07/16/25 07/16/25 11:06 Patient Tobacco Use Status Former Tobacco user 07/16/25 11:06 e-Cigarette/Vaping Use Never Used 07/16/25 11:06 PHQ-9: PHQ-9 Score PHQ-9: Total score 0 07/16/25 11:06 Depression Screening Interpretation: Negative Thrive Assessment: Date of Thrive Assessment Date Thrive assessed 11/26/24 07/16/25 11:06 Const General: no acute distress HENMT Head: Yes normal to inspection Ears: hearing grossly normal bilaterally Face and sinus: Yes normal facial exam Neck Neck: Yes supple Resp Effort & Inspection: normal respiratory effort Auscultation: clear to auscultation bilaterally Cardio Rhythm: regular rhythm Heart sounds: S1 normal heart sound present and S2 normal heart sound present GI Inspection: Yes normal to inspection Palpation (GI): Soft to palpation Percussion: Yes normal to percussion Auscultation: normal bowel sounds Coding Level of Care Code Est Pt Level 4 (39515) Diagnoses Gastritis K29.70 Assessment & Plan Assessment & Plan (1) Gastritis: Code(s): K29.70 - Gastritis, unspecified, without bleeding Category: Medical Plan: Patient was advised to stop PPI for 2 weeks and check H pylori stool antigen, then restart omeprazole and try Carafate before meals for 1 month. If the symptoms persist she will be referred to GI for EGD Orders: Orders H pylori Ag Stool Today K29.70 - Gastritis, unspecified, without bleeding Medications: New sucralfate (Carafate) 1 g PO QIDACHS 90 tabs 0RF Changed From sertraline (Zoloft) 50 mg PO DAILY 135 tabs 3RF To sertraline (Zoloft) 75 mg (1.5 x 50 mg) PO DAILY 135 tabs 3RF
--- OUTSIDE RECORDS SUMMARY | 2025-07-16 13:47 | XMS_ITS | Clinical Summary ---
Author Organization [address] Address [address] [place] [address] Phone Care Team Providers Care President Of [place] Name Role Phone LetihenriNora Lima DO Primary [...] Maternal Grandfather Maternal Grandmother Mother Alive in [place] Paternal Grandfather Paternal Grandmother Sister Alive Social [...] AM EDT Appointment Radiology Department - [address] [phone] Health Maintenance Due Date Last Done Comments Colorectal Cancer Screening: Colonoscopy 1975 Hepatitis B Vaccines (1 of 3 - 19+ 3-dose series) 1994 Cervical Cancer Screening: Pap Smear 1996 HIV Screening 09/09/2022 Hepatitis C Screening 09/09/2022 [...] (2 - Td or Tdap) 04/07/2030 04/07/2020 RSV Immunization Adult Patients (1 - 1-dose 75+ series) 2050 HIB Vaccines Aged Out No longer eligi [...] is recommended in 1 year. Mammo Location: [place], [address] [place] [address], [address], . -------- FINAL REPORT -------- Dictated By: Theodora Brito Dictated Date: 03/02/2025 11:09 ET Assigned Physician: Theodora Brito Reviewed and Electronically Signed By: Theodora Brito Signed Date: 03/02/2025 11:14 ET Workstation ID: [id number] Transcribed By: Self Edit Transcribed Date: 03/02/2025 [...] is recommended in 1 year. Mammo Location: [facility], [address] [place] [address], [address], . -------- FINAL REPORT -------- Dictated By: Theodora Brito Dictated Date: 03/02/2025 11:09 ET Assigned Physician: Theodora Brito Reviewed and Electronically Signed By: Theodora Brito Signed Date: 03/02/2025 11:14 ET Workstation ID: [id number] Transcribed By: Self Edit Transcribed Date: 03/02/2025 11:09 ET us Elysia Chapa MD IMG BI PROCEDURES Final Resul t from Last 3 Months or Most Recently Relevant to Health Maintenance Insurance [facility] Care Teams President Of The [place] Relationship Specialty Start Date End Date Nora Daniel DO [facility] [address] [place] [phone] PCP - General Internal Medicine 07/30/15
== END 2025-07-16 11:59 | disposition home or self-care (01) ==
LOC: HO.HMCC 10:53
PROVIDERS: PCP Internal Medicine; Visit Provider Internal Medicine
DX: K29.70 Gastritis, unspecified, without bleeding (principal)

== ENCOUNTER 2025-08-06 09:00 | Outpatient (REF) | payer BC, SELFPAY ==
--- OUTSIDE RECORDS SUMMARY | 2025-08-06 11:32 | XMS_ITS | Clinical Summary ---
Author Organization [address] Address [address] [place] [address] Phone Care Team Providers Care Patient Care Name Role Phone LetihenriNora Lima DO Primary [...] Maternal Grandfather Maternal Grandmother Mother Alive in [place] Paternal Grandfather Paternal Grandmother Sister Alive Social [...] 8:30 AM EDT Appointment Radiology Department - [address] [phone] Health Maintenance Due Date Last Done Comments [...] is recommended in 1 year. Mammo Location: [place] [facility], [address] [place] [address], [address], . -------- FINAL REPORT -------- Dictated By: Theodora Brito Dictated Date: 03/02/2025 11:09 ET Assigned Physician: Theodora Brito Reviewed and Electronically Signed By: Theodora Brito Signed Date: 03/02/2025 11:14 ET Workstation ID: [id number] Transcribed By: Self Edit Transcribed Date: 03/02/2025 [...] is recommended in 1 year. Mammo Location: [place] [facility], [address] [place] [address], [address], . -------- FINAL REPORT -------- Dictated By: Theodora Brito Dictated Date: 03/02/2025 11:09 ET Assigned Physician: Theodora Brito Reviewed and Electronically Signed By: Theodora Brito Signed Date: 03/02/2025 11:14 ET Workstation ID: [id number] Transcribed By: Self Edit Transcribed Date: 03/02/2025 11:09 ET us Elysia Chapa MD IMG BI PROCEDURES Final Resul t from Last 3 Months or Most Recently Relevant to Health Maintenance Insurance [facility] Care Teams Patient Care Relationship Specialty Start Date End Date Nora Daniel DO [facility] [address] [place] [phone] PCP - General Internal Medicine 07/30/15
== END 2025-08-06 09:01 | disposition home or self-care (01) ==
LOC: HO.HMGCLNP 09:00
PROVIDERS: PCP Internal Medicine; Visit Provider Internal Medicine
DX: K29.70 Gastritis, unspecified, without bleeding (principal)
CPT/HCPCS: 87338